=== PATIENT | male | born 1975 | race Two or more races ===

== ENCOUNTER 2019-04-18 11:07 | Inpatient (IN) | payer MEDICAID ==
[~2019-04-18] VITALS: Ht 175.3 cm; Wt 69.9 kg
[2019-04-18] VITALS (12 sets, daily range): BP systolic 96–136; BP diastolic 60–93
[2019-04-18] MEDS ORDERED: insulin (11:11)
--- NOTE | 2019-04-18 11:21 | NUR ---
ED Nurse Note: pt brought in to ER by ambulance from [facility] due to high blood sugar. per EMS pt has had this symptom for 3 days. pt aao x1-2 but following commands and behavior appropriate. anterior skin clean and intact and posterior skin will be checked after labs are collected. calm and cooperative but labored tachy breathing noted. vss as documented and tachyacardia notified to ERMD. blood sugar level shown critically high and ERMD made aware. pt is in gown and on environmental monitoring specialist.
[2019-04-18 11:48] LABS: HEMATOCRIT 53.3 % (42.0-52.0); HEMOGLOBIN 16.3 G/DL (14.2-18.0); MEAN CORPUSCULAR VOLUME 99 FL (80-99); PLATELET COUNT 209 K/UL (150-450); RED BLOOD COUNT 5.36 M/UL (4.70-6.10); RED CELL DISTRIBUTION WIDTH 14.9 % (11.6-14.8)
[2019-04-18 11:55] LABS: APPEARANCE,URINE CLEAR; BILIRUBIN, URINE NEGATIVE (NEGATIVE); COLOR,URINE PALE YELLOW; GLUCOSE, URINE (UA) 4+ (NEGATIVE); KETONES,URINE 4+ (NEGATIVE); LEUKOCYTE ESTERASE ,URINE NEGATIVE (NEGATIVE); NITRITE,URINE NEGATIVE (NEGATIVE); PH,URINE 5 (4.5-8.0); PROTEIN,URINE 2+ (NEGATIVE); UROBILINOGEN,URINE NORMAL MG/DL (0.0-1.0)
--- NOTE | 2019-04-18 12:00 | NUR ---
ED Nurse Note: posteior skin clean and intact. no pressure injury noted.
--- NOTE | 2019-04-18 12:03 | Emergency Room Report ---
History of Present Illness General Chief Complaint: Abnormal Labs Source: Patient, EMS Present Illness HPI 43-year-old male presents ED for evaluation. Brought in by EMS from [facility] facility. Noted to have elevated glucose. Nursing staff stated that Accu- Chek has been high for the last 4 days. History of diabetes. Patient history of craniotomy. Nonverbal at baseline. Leave verbal at baseline. No signs of distress upon arrival. Unable to provide any additional history at this time. No other aggravating relieving factors. No other associated symptoms Allergies: Coded Allergies: No Known Allergies (Unverified , 04/18/19) Patient History Past Medical History: DM Past Surgical History: none Pertinent Family History: none Social History: Denies: smoking, alcohol use, drug use Immunizations: UTD Reviewed Nursing Documentation: PMH: Agreed; PSxH: Agreed Nursing Documentation-PMH Past Medical History: No History, Except For Hx Diabetes: Yes Review of Systems All Other Systems: limited Physical Exam Vital Signs Date Time Temp Pulse Resp B/P (MAP) Pulse Ox O2 Delivery O2 Flow Rate FiO2 04/18/19 11:07 97.5 122 24 140/94 (109) 100 Room Air Sp02 EP Interpretation: reviewed, normal General Appearance: no apparent distress, alert, GCS 15, non-toxic Head: normocephalic Eyes: bilateral eye normal inspection, bilateral eye PERRL ENT: normal ENT inspection Neck: normal inspection Respiratory: chest non-tender, lungs clear, normal breath sounds, speaking full sentences Cardiovascular #1: regular rate, rhythm, no edema Gastrointestinal: normal inspection Rectal: deferred Genitourinary: no CVA tenderness Musculoskeletal: normal inspection Neurologic: other - nonverbal Psychiatric: other - nonverbal Skin: other - see nursing skin notes Lymphatic: normal inspection Procedures Critical Care Time Critical Care Time i. I feel this is a highly complex case requiring extensive working including EKG/Rhythm strip, Xray/CT/US, Blood/urine lab work, repeat exams while in ED, and administration of strong opiates/narcotics for pain control, admission to hospital or close patient follow up. Total time: 50 min bedside evaluation and treatment excludes procedures (EKG). Reason for critical care: DKA, sepsis Possible complications: hypotension, hypertension, IL, shock, arrhythmias, metabolic acidosis, end organ damage, respiratory failure. Interventions: labs, IVFS, EKG, CXR. bolus. broad spectrum antibiotics. ABG. insulin bolus and insulin drip. Course: Presenting with elevated Accu-Chek from boarding care. Minimally verbal. Glucose critically high. Labs show significant leukocytosis. Glucose greater than 500, bicarb low, anion gap high. ABG shows significant acidosis. Lactic greater than 3.8. Given 30 cc/kg fluid bolus. Given broad-spectrum antibiotics. Given bicarb. Insulin bolus and insulin drip started Consultations: nursing staff, EMS, family Performed by: Dr Bernabe Tolerated well condition = critical j. because of unstable vital signs this patient had a condition that could potentially threaten life or limb. I feel this is a critical patient who required my full attention while patient was considered critical. Total Critical Care Time excluding procedures was greater than 50 minutes Medical Decision Making Diagnostic Impression: Primary Impression: DKA (diabetic ketoacidoses) Qualified Codes: E13.10 - Other specified diabetes mellitus with ketoacidosis without coma Additional Impression: Sepsis Qualified Codes: A41.9 - Sepsis, unspecified organism ER Course Hospital Course 43-year-old male presenting to ED with altered mental status, glucometer critically high Differential diagnoses include: ETOH/drug ingestion, sepsis, DKA Clinical course Patient placed on stretcher. On hall monitor. After initial history and physical I ordered labs, IV fluids, EKG and chest Xray Labs-glucose greater than 500, anion gap elevated, bicarbonate 6, lactic 3.8. Leukocytosis noted. UA+ bacteria EKG - NSR, no acute ischemic changes interpreted by me Chest x-ray unremarkable 30cc/kg fluid bolus given. given bicarb. given broad spectrum antibiotics. insulin bolus/drip started. bicarb given Case discussed with Dr. Zamora and he agreed to accept the patient to his service for further care and support i. I feel this is a highly complex case requiring extensive working including EKG/Rhythm strip, Xray/CT/US, Blood/urine lab work, repeat exams while in ED, and administration of strong opiates/narcotics for pain control, admission to hospital or close patient follow up. j. because of unstable vital signs this patient had a condition that could potentially threaten life or limb. I feel this is a critical patient who required my full attention while patient was considered critical. Total Critical Care Time excluding procedures was greater than 50 minutes diagnosis - DKA, sepsis admitted to ICU in critical condition Labs Test 04/18/19 11:14 04/18/19 11:30 04/18/19 12:30 White Blood Count 20.0 K/UL (4.8-10.8) Red Blood Count 5.36 M/UL (4.70-6.10) Hemoglobin 16.3 G/DL (14.2-18.0) Hematocrit 53.3 % (42.0-52.0) Mean Corpuscular Volume 99 FL (80-99) Mean Corpuscular Hemoglobin 30.4 PG (27.0-31.0) Mean Corpuscular Hemoglobin Concent 30.6 G/DL (32.0-36.0) Red Cell Distribution Width 14.9 % (11.6-14.8) Platelet Count 209 K/UL (150-450) Mean Platelet Volume 6.1 FL (6.5-10.1) Neutrophils (%) (Auto) % (45.0-75.0) Lymphocytes (%) (Auto) % (20.0-45.0) Monocytes (%) (Auto) % (1.0-10.0) Eosinophils (%) (Auto) % (0.0-3.0) Basophils (%) (Auto) % (0.0-2.0) Differential Total Cells Counted 100 Neutrophils % (Manual) 97 % (45-75) Lymphocytes % (Manual) 2 % (20-45) Monocytes % (Manual) 1 % (1-10) Eosinophils % (Manual) 0 % (0-3) Basophils % (Manual) 0 % (0-2) Band Neutrophils 0 % (0-8) Platelet Estimate Adequate Platelet Morphology Normal Red Blood Cell Morphology Normal Sodium Level 137 MMOL/L (136-145) Potassium Level 4.5 MMOL/L (3.5-5.1) Chloride Level 101 MMOL/L (98-107) Carbon Dioxide Level 6 MMOL/L (21-32) Anion Gap 30 mmol/L (5-15) Blood Urea Nitrogen 16 mg/dL (7-18) Creatinine 1.9 MG/DL (0.55-1.30) Estimat Glomerular Filtration Rate 39.3 mL/min (>60) Glucose Level 539 MG/DL (74-106) Lactic Acid Level 3.80 mmol/L (0.4-2.0) Calcium Level 8.7 MG/DL (8.5-10.1) Magnesium Level 2.8 MG/DL (1.8-2.4) Total Bilirubin 0.6 MG/DL (0.2-1.0) Aspartate Amino Transf (AST/SGOT) 53 U/L (15-37) Alanine Aminotransferase (ALT/SGPT) 49 U/L (12-78) Alkaline Phosphatase 148 U/L (46-116) Pro-B-Type Natriuretic Peptide 729 pg/mL (0-125) Total Protein 8.4 G/DL (6.4-8.2) Albumin 4.2 G/DL (3.4-5.0) Globulin 4.2 g/dL Albumin/Globulin Ratio 1.0 (1.0-2.7) Acetone Level Positive-moderate (NEGATIVE) Urine Color Pale yellow Urine Appearance Clear Urine pH 5 (4.5-8.0) Urine Specific [place] 1.020 (1.005-1.035) Urine Protein 2+ (NEGATIVE) Urine Glucose (UA) 4+ (NEGATIVE) Urine Ketones 4+ (NEGATIVE) Urine Blood 4+ (NEGATIVE) Urine Nitrite Negative (NEGATIVE) Urine Bilirubin Negative (NEGATIVE) Urine Urobilinogen Normal MG/DL (0.0-1.0) Urine Leukocyte Esterase Negative (NEGATIVE) Urine RBC 2-4 /HPF (0 - 0) Urine WBC 0-2 /HPF (0 - 0) Urine Squamous Epithelial Cells Occasional /LPF Urine Amorphous Sediment Moderate /LPF (NONE) Urine Bacteria Occasional /HPF (NONE) Urine Fine Granular Casts 0-2 /LPF (NONE) Arterial Blood pH 7.088 (7.350-7.450) Arterial Blood Partial Pressure CO2 < 14.4 mmHg (35.0-45.0) Arterial Blood Partial Pressure O2 110.4 mmHg (75.0-100.0) Arterial Blood HCO3 mmol/L (22.0-26.0) Arterial Blood Oxygen Saturation 97.4 % (95-100) Arterial Blood Base Excess (-2-2) Jason Test Positive EKG Diagnostic Results Rate: tachycardiac Rhythm: NSR ST Segments: no acute changes ASA given to the pt in ED: No Rhythm Strip Diag. Results EP Interpretation: yes Rhythm: NSR, no PVC's, no ectopy Chest X-Ray Diagnostic Results Chest X-Ray Diagnostic Results : Chest X-Ray Ordered: Yes # of Views/Limited/Complete: 1 View Indication: Other EP Interpretation: Yes Interpretation: no consolidation, no effusion, no pneumothorax, no acute cardiopulmonary disease Impression: No acute disease Electronically Signed by: Electronically signed by Ashutosh Bernabe MD Last Vital Signs Date Time Temp Pulse Resp B/P (MAP) Pulse Ox O2 Delivery O2 Flow Rate FiO2 04/18/19 11:20 114 22 Room Air 04/18/19 11:19 97.1 136/93 100 Status: improved Disposition: ADMITTED INPATIENT Condition: Critical Referrals: NOT CHOSEN IPA/,REFERRING (PCP) Ashutosh Bernabe MD Apr 18, 2019 12:03
[2019-04-18 12:05] LABS: ALANINE AMINOTRANSFERASE 49 U/L (12-78); ALBUMIN 4.2 G/DL (3.4-5.0); ALKALINE PHOSPHATASE 148 U/L (46-116); ANION GAP 30 mmol/L (5-15); ASPARTATE AMINO TRANSFERASE 53 U/L (15-37); BILIRUBIN,TOTAL 0.6 MG/DL (0.2-1.0); BLOOD UREA NITROGEN 16 mg/dL (7-18); CALCIUM 8.7 MG/DL (8.5-10.1); CHLORIDE 101 MMOL/L (98-107); CREATININE 1.9 MG/DL (0.55-1.30); POTASSIUM 4.5 MMOL/L (3.5-5.1); SODIUM 137 MMOL/L (136-145)
--- NOTE | 2019-04-18 12:12 | NUR ---
ED Nurse Note: xray on bedside
[2019-04-18 12:16] LABS: CARBON DIOXIDE 6 MMOL/L (21-32)
[2019-04-18] MEDS ORDERED: Sodium Chloride 2,200 ML IVLG ONE (12:30)
[2019-04-18] MEDS ORDERED: Insulin Human Regular 100units/ml 3ml IV ONE (12:30)
[2019-04-18] MEDS ORDERED: Piperacillin/Tazobactam 3.375 GM in NS 110 ML IVPB ONE (12:30)
[2019-04-18] MEDS ORDERED: Sodium Bicarbonate 50ml Carp IV ONE (12:45)
--- NOTE | 2019-04-18 12:48 | NUR ---
ED Nurse Note: waiting for pharmacy to prepare insulin mix and bring it.
--- NOTE | 2019-04-18 13:20 | NUR ---
ED Nurse Note: accu check result 246 mg/dl has been reported to WILMAN.
[2019-04-18] MEDS ORDERED: D5 1/2NS 1,000 ML IV SCH (13:30)
--- NOTE | 2019-04-18 13:45 | Diagnostic Imaging Report ---
Indication: Dyspnea Comparison: None A single view chest radiograph was obtained. Findings: Cardiomediastinal appearance is within normal limits for age. The lungs are clear. Left hemidiaphragm is elevated. Pulmonary vascularity is appropriate. The diaphragmatic contour is smooth and costophrenic angles are sharp. No pleural effusions are identified. The bones are unremarkable. Impression: No acute findings
--- NOTE | 2019-04-18 13:57 | NUR ---
ED Nurse Note: report given to KIKI Dye.
--- NOTE | 2019-04-18 14:05 | NUR ---
ED Nurse Note: pt left unit with 2 RNs in stable condition.
--- NOTE | 2019-04-18 14:15 | NUR ---
NURSE NOTES: Received patient from Eric Montoya RN. Patient admitted for DKA with blood glucose >500 and altered mental status. Patient sitting up in bed with no sign of acute distress at this time. Patient points out that he has pain in his foot and left hand. the toe on his left foot is swollen and the nail is dark and thick. No apparent problems observed on the left hand. Will notify Dr Zamora and request podiatry consult for the swollen toe. Patient on room air with oxygen saturation 100%. patient temp 99.0, blood pressure 120/72, HR 102, RR 22. Patient has indention on the left side of his skull. Patient has contracture of the right hand. He is unable to open his hand. Patient able to squeeze with his left hand and is able to push and pull with bilateral feet with equal strength 5/5. Patient ambulatory in the [facility]. Patient has no history of medical records on file and is unable to provide information at this time. Patient follows commands and appears to understand what he is told but has trouble communicating presumably due to brain injury. Patient has left AC 20G PIV and right AC 20G PIV that are both patient and asymptomatic at this time. Patient has insulin drip running at 10 untis/hour at this time and D5 0.45% NS running at 100mL/hr. Blood sugar upon arrival to the floor is 209. Will continue to monitor. Patient skin intact at this time. Bed in low position with bed alarm on. Urinal at the bedside. Heels elevated.
--- NOTE | 2019-04-18 15:00 | NUR ---
NURSE NOTES: Dr. Zamora notified of patient's admission to ICU- updated with patient's condition - made aware of latest BS 209- with order to call Dr. Zamora for consult and that he will call back to give more admitting orders
--- NOTE | 2019-04-18 15:00 | NUR ---
NURSE NOTES: Patient's caser from the [facility] came to see the patient. She gave us the number for the patient's sister and the name and number of the facility. Patient is from [facility] on [address] [place] [address]. Will ask MD is he wants to request medical records. The facility was called and the director of the facility stated that he does not have access to the medical records at this time but the patient was previously hospitalized at [facility]. Will follow up with [facility] if the MD requests medical records.
--- NOTE | 2019-04-18 15:05 | NUR ---
NURSE NOTES: Left message at Dr. Zamora's voice mail regarding the consult
[2019-04-18] MEDS ORDERED: Insulin Human Regular 100units/ml 3ml IV PRN ×2 (15:45)
--- NOTE | 2019-04-18 15:56 | NUR ---
NURSE NOTES: Received call back and orders from Dr Arrington. Orders are as follows: Insulin Drip algorithm 3, CBC, CMP, Mg, Phos, and A1C labs for the morning, and IV fluid D5 0.45% NS at 100mL/hr. Orders read back and verified. Orders placed at this time. Will follow up with pharmacy regarding insulin drip.
--- NOTE | 2019-04-18 16:00 | NUR ---
NURSE NOTES: Blood pressure 105/67, HR 108 and showing sinus tachycardia on the library monitor, SpO2 100% on room air, temp 98.5, and RR 22. Patient showing no sign of acute distress. Blood glucose finger stick 177 at this time. Insulin drip running at 5units/hr per protocol. Patient's right wrist 20G PIV and left antecubital 20G PIV are both patent and asymptomatic. Patient has D5 0.45% NS running at 100mL/hr. Patient still has not voided. Urinal at the bedside. Awaiting call back and admission orders from Dr Zamora. Addendum: 04/18/19 at 1800 by Anne Salomon RN Big toe on right foot remains swollen. Patient able to move right arm but right hand remains weak and clenched.
[2019-04-18] MEDS: D5 1/2NS 1,000 ML IV SCH ×2 (16:17→23:44)
--- NOTE | 2019-04-18 17:00 | NUR ---
NURSE NOTES: Dr Zamora called back with admission orders. Orders read back and verified via telephone order/read back. Orders placed at this time.
[2019-04-18] MEDS: Zoysn 3.37gm in NS 100ML IVPB SCH (18:14)
--- NOTE | 2019-04-18 19:00 | NUR ---
HAND-OFF: Report given to KIKI Cardona. Vital signs stable. No sign of acute distress. Patient on insulin drip at 3units/hr. Endorsed to continue to monitor blood sugar and follow up. Addendum: 04/18/19 at 1947 by Anne Salomon RN Report given at 1939.
--- NOTE | 2019-04-18 19:20 | NUR ---
NURSE NOTES: Received pt and report from KIKI Rodríguez. Pt's resting in bed, watching TV, verbally responsive, however mentally impaired, post craniotomy 2016. VS stable, in no acute distress. SR on school nurse. O2 sat 100% on RA. Noted right wrist and left AC both 20G running D5 1/2 NS at 100ml/hr and Insulin drip at 3 units/hr. Pt's currently on Algorithm 3. HOB kept elevated, bed in low and locked position, call light within reach. Will continue to monitor.
[2019-04-18] MEDS: Insulin Rate Change 1 Each MISC PRN ×2 (20:14→21:13)
--- NOTE | 2019-04-18 22:00 | NUR ---
NURSE NOTES: Pt's resting in bed, in no acute distress. VS stable. Will continue to monitor.
[2019-04-19] VITALS (24 sets, daily range): BP systolic 87–108; BP diastolic 55–78
--- NOTE | 2019-04-19 | NUR ---
NURSE NOTES: Pt's resting in bed, in no acute distress. VS stable. Will continue to monitor.
[2019-04-19] MEDS: Zoysn 3.37gm in NS 100ML IVPB SCH ×3 (02:00→18:22)
--- NOTE | 2019-04-19 02:00 | NUR ---
NURSE NOTES: Pt's resting in bed, asleep, in no acute distress. VS stable. Will continue to monitor.
--- NOTE | 2019-04-19 04:10 | NUR ---
NURSE NOTES: Pt's resting in bed, asleep, in no acute distress. VS stable. Will continue to monitor.
--- NOTE | 2019-04-19 05:22 | General Progress Note ---
Assessment/Plan Problem List: (1) Skull defect ICD Codes: M95.2 - Other acquired deformity of head SNOMED: 452302158, 658259985 (2) DKA (diabetic ketoacidoses) ICD Codes: E11.10 - Type 2 diabetes mellitus with ketoacidosis without coma SNOMED: 545908710, 84158545 Qualifiers: Qualified Codes: E13.10 - Other specified diabetes mellitus with ketoacidosis without coma (3) Sepsis ICD Codes: A41.9 - Sepsis, unspecified organism SNOMED: 49465439, 38334387 Qualifiers: Qualified Codes: A41.9 - Sepsis, unspecified organism Assessment/Plan: continue insulin gtt and IVF as is for now will follow am labs and lytes will convert insulin gtt to sub Q regimen once AG is closed discussed with RN at bedside Subjective ROS Limited/Unobtainable: Yes Allergies: Coded Allergies: No Known Allergies (Unverified , 04/18/19) Subjective presented from [facility] and care with elevated glucose and AMS found to be in DKA started on insulin gtt and transferred to ICU I spoke with agricultural purchasing agent yesterday and established insulin gtt protocol glucose values are well controlled on insulin gtt and D50 half saline diet is regular diabetic - he vomited last night am labs are pending - chalk machine operator is at bedside now to draw Objective Last 24 Hour Vital Signs Date Time Temp Pulse Resp B/P (MAP) Pulse Ox O2 Delivery O2 Flow Rate FiO2 04/19/19 03:00 87 14 98/63 (75) 98 04/19/19 02:00 88 18 101/62 (75) 97 04/19/19 01:00 86 15 98/60 (73) 99 04/19/19 00:00 88 16 96/67 (77) 100 04/19/19 00:00 88 04/19/19 00:00 Room Air 04/18/19 23:00 92 16 101/60 (74) 100 04/18/19 22:00 93 30 105/68 (80) 100 04/18/19 21:00 97 24 96/62 (73) 100 04/18/19 20:00 Room Air 04/18/19 20:00 90 04/18/19 20:00 98.8 98 19 110/65 (80) 100 04/18/19 19:00 101 19 101/65 (77) 100 04/18/19 18:00 101 17 102/65 (77) 99 04/18/19 17:00 108 19 105/67 (80) 100 04/18/19 16:00 104 04/18/19 16:00 98.5 105 20 104/70 (81) 100 04/18/19 16:00 Room Air 04/18/19 15:41 Room Air 04/18/19 15:00 98 16 121/82 (95) 100 04/18/19 14:36 97 04/18/19 14:09 99.0 103 16 120/72 (88) 100 04/18/19 14:05 98.0 98 19 120/85 100 Room Air 04/18/19 12:59 97.4 108 19 127/89 100 Room Air 04/18/19 11:20 114 22 Room Air 04/18/19 11:19 97.1 114 22 136/93 100 Room Air 04/18/19 11:07 97.5 122 24 140/94 (109) 100 Room Air Intake and Output 04/18/19 04/19/19 19:00 07:00 Intake Total 4130.0 ml 1129.0 ml Output Total 300 ml 800 ml Balance 3830.0 ml 329.0 ml Intake Oral 500 ml 200 ml IV Total 3630.0 ml 929.0 ml Output Urine Total 800 ml Emesis 300 ml # Voids 1 1 Laboratory Tests 04/18/19 11:14: White Blood Count 20.0H, Red Blood Count 5.36, Hemoglobin 16.3, Hematocrit 53.3H , Mean Corpuscular Volume 99, Mean Corpuscular Hemoglobin 30.4, Mean Corpuscular Hemoglobin Concent 30.6L, Red Cell Distribution Width 14.9H, Platelet Count 209, Mean Platelet Volume 6.1L, Neutrophils (%) (Auto) , Lymphocytes (%) (Auto) , Monocytes (%) (Auto) , Eosinophils (%) (Auto) , Basophils (%) (Auto) , Differential Total Cells Counted 100, Neutrophils % ( Manual) 97H, Lymphocytes % (Manual) 2L, Monocytes % (Manual) 1, Eosinophils % ( Manual) 0, Basophils % (Manual) 0, Band Neutrophils 0, Platelet Estimate Adequate, Platelet Morphology Normal, Red Blood Cell Morphology Normal, Sodium Level 137, Potassium Level 4.5, Chloride Level 101, Carbon Dioxide Level 6*L, Anion Gap 30H, Blood Urea Nitrogen 16, Creatinine 1.9H, Estimat Glomerular Filtration Rate 39.3, Glucose Level 539*H, Lactic Acid Level 3.80H, Calcium Level 8.7, Magnesium Level 2.8H, Total Bilirubin 0.6, Aspartate Amino Transf ( AST/SGOT) 53H, Alanine Aminotransferase (ALT/SGPT) 49, Alkaline Phosphatase 148H , Pro-B-Type Natriuretic Peptide 729H, Total Protein 8.4H, Albumin 4.2, Globulin 4.2, Albumin/Globulin Ratio 1.0, Acetone Level Positive-moderate 04/18/19 11:30: Urine Color Pale yellow, Urine Appearance Clear, Urine pH 5, Urine Specific [place] 1.020, Urine Protein 2+H, Urine Glucose (UA) 4+H, Urine Ketones 4+H, Urine Blood 4+H, Urine Nitrite Negative, Urine Bilirubin Negative, Urine Urobilinogen Normal, Urine Leukocyte Esterase Negative, Urine RBC 2-4H, Urine WBC 0-2, Urine Squamous Epithelial Cells Occasional, Urine Amorphous Sediment ModerateH, Urine Bacteria Occasional, Urine Fine Granular Casts 0-2H 04/18/19 12:30: Arterial Blood pH 7.088*L, Arterial Blood Partial Pressure CO2 < 14.4*L, Arterial Blood Partial Pressure O2 110.4H, Arterial Blood HCO3 , Arterial Blood Oxygen Saturation 97.4, Arterial Blood Base Excess , Jason Test Positive 04/18/19 13:50: Lactic Acid Level 3.90H 04/18/19 20:00: Lactic Acid Level 1.60 Height (Feet): 5 Height (Inches): 9.00 Weight (Pounds): 160 General Appearance: lethargic EENT: other - skull defect Neck: normal alignment Cardiovascular: normal rate Respiratory/Chest: lungs clear Abdomen: normal bowel sounds Edema: no edema noted Arm (L), no edema noted Arm (R), no edema noted Leg (L), no edema noted Leg (R), no edema noted Pedal (L), no edema noted Pedal (R), no edema noted Generalized Objective Current Medications Medications (Trade) Dose Ordered Sig/Awa Route PRN Reason Start Time Stop Time Status Last Admin Dose Admin Acetaminophen (Tylenol) 650 mg Q6H PRN ORAL Fever 04/18/19 16:45 05/18/19 16:44 Acetaminophen (Tylenol) 650 mg Q6H PRN ORAL Mild Pain (Pain Scale 1-3) 04/18/19 16:45 05/18/19 16:44 Dextrose (Dextrose 50%) 25 ml Q30M PRN IV HYPOGLYCEMIA 04/18/19 15:45 05/18/19 15:44 Dextrose (Dextrose 50%) 25 ml Q30M PRN IV Hypoglycemia 04/18/19 16:45 05/18/19 16:44 Dextrose (Dextrose 50%) 50 ml Q30M PRN IV HYPOGLYCEMIA 04/18/19 15:45 05/18/19 15:44 Dextrose (Dextrose 50%) 50 ml Q30M PRN IV Hypoglycemia 04/18/19 16:45 05/18/19 16:44 Dextrose/Sodium Chloride 1,000 ml @ 100 mls/hr Q10H IV 04/18/19 15:45 05/18/19 15:44 04/18/19 23:44 Insulin Human Regular (NovoLIN R) 5 units PRN PRN IV BS 200-299 04/18/19 15:45 05/18/19 15:44 Insulin Human Regular (NovoLIN R) 10 units PRN PRN IV BS=>300 04/18/19 15:45 05/18/19 15:44 Insulin Human Regular 100 units/ Sodium Chloride 100 ml @ 0 mls/hr Q24H IV 04/18/19 16:30 05/18/19 15:59 04/18/19 16:34 Miscellaneous Medication (Insulin Rate Change) 1 ea PRN PRN MISC DKA 04/18/19 15:45 05/18/19 15:44 04/18/19 21:13 Pantoprazole (Protonix) 40 mg DAILY IV 04/19/19 09:00 05/19/19 08:59 Piperacillin Sod/ Tazobactam Sod 3.375 gm/Sodium Chloride 110 ml @ 27.5 mls/hr Q8H IVPB 04/18/19 18:00 04/25/19 17:59 04/19/19 02:00 Octavio Arrington MD Apr 19, 2019 05:22
[2019-04-19 05:48] LABS: BASOPHILS % (AUTO) 0.7 % (0.0-2.0); EOSINOPHILS % (AUTO) 0.7 % (0.0-3.0); HEMATOCRIT 36.3 % (42.0-52.0); HEMOGLOBIN 12.3 G/DL (14.2-18.0); MEAN CORPUSCULAR VOLUME 91 FL (80-99); MONOCYTES % (AUTO) 7.5 % (1.0-10.0); PLATELET COUNT 140 K/UL (150-450); RED BLOOD COUNT 4.01 M/UL (4.70-6.10); RED CELL DISTRIBUTION WIDTH 13.7 % (11.6-14.8); WHITE BLOOD COUNT 6.8 K/UL (4.8-10.8)
--- NOTE | 2019-04-19 06:00 | NUR ---
NURSE NOTES: Pt's resting in bed, in no acute distress. VS stable. Will continue to monitor.
--- NOTE | 2019-04-19 07:09 | NUR ---
HAND-OFF: Report given to KIKI Piña.
--- NOTE | 2019-04-19 07:27 | NUR ---
NURSE NOTES: Report received from Brendan RN. Pt alert and oriented x 2-3, able to make needs known. Pt forgetful at times. Pt denies pain or discomfort at this time. Pt on threat monitoring analyst, SR. Pt on RA saturating 100%, denies SOB. Urinal at bedside. RW 20G and LW 20G noted and intact with insulin running at 2 u/hr and D5 1/2NS @ 100 cc/hr. Safety measures in place with bed locked and in lowest position, side rails x3 up and bed alarm on. Will continue to monitor and continue plan of care.
[2019-04-19 08:03] LABS: ALANINE AMINOTRANSFERASE 33 U/L (12-78); ALBUMIN 2.7 G/DL (3.4-5.0); ALBUMIN/GLOBULIN RATIO 0.8 (1.0-2.7); ALKALINE PHOSPHATASE 85 U/L (46-116); ANION GAP 9 mmol/L (5-15); ASPARTATE AMINO TRANSFERASE 33 U/L (15-37); BILIRUBIN,TOTAL 0.5 MG/DL (0.2-1.0); BLOOD UREA NITROGEN 6 mg/dL (7-18); CALCIUM 8.3 MG/DL (8.5-10.1); CARBON DIOXIDE 22 MMOL/L (21-32); CHLORIDE 108 MMOL/L (98-107); CREATININE 1.1 MG/DL (0.55-1.30); PHOSPHORUS 1.3 MG/DL (2.5-4.9); SODIUM 139 MMOL/L (136-145)
[2019-04-19 08:06] LABS: POTASSIUM 2.6 MMOL/L (3.5-5.1)
[2019-04-19] MEDS: Pantoprazole Inj IV SCH (08:36)
--- NOTE | 2019-04-19 08:50 | NUR ---
NURSE NOTES: Spoke with Dr Zamora regarding K level 2.6. ordered KCL 40 meq oral x1 now. Will continue to monitor.
[2019-04-19] MEDS: D5 1/2NS 1,000 ML IV SCH (09:53)
--- NOTE | 2019-04-19 10:05 | NUR ---
NURSE NOTES: Dr. Zamora saw patient. Diet order changed to 1800 ADA. Will continue to monitor.
--- NOTE | 2019-04-19 12:22 | NUR ---
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
--- NOTE | 2019-04-19 12:30 | NUR ---
NURSE NOTES: Patient tolerated soft lunch, ate independently. VSS.
--- NOTE | 2019-04-19 15:00 | NUR ---
NURSE NOTES: F/S 105. Insulin drip decreased to 1 unit/hr. Patient appears to be resting comfortably. Denies pain. Able to report all needs. Bed in lowest position and call light in place. Will continue to monitor.
[2019-04-19] MEDS ORDERED: D5 1/2NS 1000ml IV ONE (15:32)
[2019-04-19] MEDS ORDERED: NS 275ml ONE (15:32)
[2019-04-19] MEDS ORDERED: Tubing IV Secondary IV ONE (15:32)
--- NOTE | 2019-04-19 17:30 | NUR ---
NURSE NOTES: Patient observed eating dinner independently. VSS.
[2019-04-19] MEDS: Levemir Flexpen SUBQ SCH (18:40)
--- NOTE | 2019-04-19 19:00 | History and Physical Report ---
DATE OF ADMISSION: 04/18/2019 HISTORY OF PRESENT ILLNESS: This is a 43-year-old male, who is a very poor historian. He was brought in by paramedics from his board and care facility with hyperglycemia. The nursing staff at the facility provided information that his Accu-Chek has been high for the last 4 days. The patient is a known diabetic, but he is unable to provide information regarding as to what he takes. He has a previous history of craniotomy and apparently, he is nonverbal at baseline with right hemiparesis and right upper extremity contractures. Apparently, the patient was at an outside hospital in the recent past, but no records available. These have been requested. PAST MEDICAL HISTORY: Diabetes mellitus. PREVIOUS SURGERIES: Left craniotomy. HOME MEDICATIONS: Not known. REVIEW OF SYSTEMS: Not obtainable. PHYSICAL EXAMINATION: GENERAL: Reveals a 43-year-old male. HEENT: Remarkable for evidence of previous hemicraniotomy with large defect in the left cranium. He has right hemifacial droop. NEUROLOGIC: He has right upper extremity contractures and weakness. Right lower extremity is also weak but 4/5. Left is normal. CHEST: Clear breath sounds bilaterally. ABDOMEN: Soft. EXTREMITIES: There is no edema. LABORATORY DATA: Lab testing overnight shows hemoglobin 12.3, white count is normal, and platelet count is 140,000. ABG obtained yesterday pH 7.08, pCO2 14, pO2 110. Chemistries this morning show a creatinine of 1.1. Anion gap is 9. Potassium 2.6. Glucose is 126. Hemoglobin A1c 7.8. Albumin 2.7. Toxicology is negative. Urinalysis is negative. X-ray of the chest is noncontributory. IMPRESSION: 1. Previous craniotomy. 2. Diabetes mellitus. 3. BKA. 4. Right hemiparesis. DISCUSSION: 1. Admit to the hospital. 2. Insulin drip. 3. IV fluids. 4. . 5. Replace potassium. 6. DVT prophylaxis. 7. Endocrine consultation. 8. We will obtain old records. 9. We will follow carefully. 10. Empiric antibiotics. Rik Zamora M.D. DR: AGNIESZKA JOB#: [id number] CC:
--- NOTE | 2019-04-19 19:24 | NUR ---
HAND-OFF: Report given to KIKI Snow.
--- NOTE | 2019-04-19 19:30 | NUR ---
NURSE NOTES: Received pt in no acute distress, awake, alert, oriented x2, follow commands but forgetful, requires verbal cues. Denies pain, denies SOB. Currently on Room air saturating 96-100%. S/P left craniotomy, left temporal lobe depressed but hard. Right sided weakness. PIV site on right wrist area intact as well. IVF of NS with 20meqKCL started at 100ml/h. Voiding via urinal. Afebrile, NSR, BP stable. Skin dry and intact. Will monitor for s/s hypo/hyperglycemia.
[2019-04-19] MEDS: NS w/KCl 20mEq 1000ml 1,000 ML IV SCH (20:09)
[2019-04-19] MEDS: NovoLOG Insulin Flexpen SUBQ SCH (21:20)
--- NOTE | 2019-04-19 21:30 | NUR ---
NURSE NOTES: Noted that PIV site on LAC accidentally pulled out as pt was slightly restless. Wants to use the BR. Assisted to BSC had 1 large formed BM. HS care done. Accucheck 273, covered per sliding scale.
[2019-04-20] VITALS (24 sets, daily range): BP systolic 80–113; BP diastolic 53–78
--- NOTE | 2019-04-20 | NUR ---
NURSE NOTES: Sleeping, no distress, VSS
[2019-04-20] MEDS: Zoysn 3.37gm in NS 100ML IVPB SCH ×3 (01:55→17:13)
--- NOTE | 2019-04-20 02:00 | NUR ---
NURSE NOTES: Sleeping, no distress. Right wrist IV patent. No hypoglycemic rxn noted.
--- NOTE | 2019-04-20 04:00 | NUR ---
NURSE NOTES: Awake, afebrile, BP stable. Denies pain. AM care rendered. Voided via urinal. Pt has expressive aphasia. Gave something to write on. Able to write that he needed coffee
[2019-04-20 05:21] LABS: BASOPHILS % (AUTO) 0.9 % (0.0-2.0); EOSINOPHILS % (AUTO) 1.2 % (0.0-3.0); HEMATOCRIT 36.2 % (42.0-52.0); HEMOGLOBIN 12.1 G/DL (14.2-18.0); LYMPHOCYTES % (AUTO) 30.1 % (20.0-45.0); MEAN CORPUSCULAR VOLUME 91 FL (80-99); MONOCYTES % (AUTO) 9.5 % (1.0-10.0); NEUTROPHILS % (AUTO) 58.3 % (45.0-75.0); PLATELET COUNT 120 K/UL (150-450); RED BLOOD COUNT 3.96 M/UL (4.70-6.10); RED CELL DISTRIBUTION WIDTH 14.3 % (11.6-14.8); WHITE BLOOD COUNT 4.6 K/UL (4.8-10.8)
[2019-04-20 05:31] LABS: ANION GAP 6 mmol/L (5-15); BLOOD UREA NITROGEN 7 mg/dL (7-18); CALCIUM 8.3 MG/DL (8.5-10.1); CARBON DIOXIDE 24 MMOL/L (21-32); CHLORIDE 111 MMOL/L (98-107); CREATININE 0.8 MG/DL (0.55-1.30); POTASSIUM 3.2 MMOL/L (3.5-5.1); SODIUM 141 MMOL/L (136-145)
[2019-04-20] MEDS: NS w/KCl 20mEq 1000ml 1,000 ML IV SCH ×2 (06:17→14:51)
[2019-04-20] MEDS: NovoLOG Insulin Flexpen SUBQ SCH ×7 (06:29→20:47)
[2019-04-20] MEDS ORDERED: Insulin Human Regular 100units/ml 3ml SUBQ ONE (06:30)
--- NOTE | 2019-04-20 06:37 | General Progress Note ---
Assessment/Plan Problem List: (1) Skull defect ICD Codes: M95.2 - Other acquired deformity of head SNOMED: 075481135, 835913016 (2) DKA (diabetic ketoacidoses) ICD Codes: E11.10 - Type 2 diabetes mellitus with ketoacidosis without coma SNOMED: 645648842, 99163809 Qualifiers: Qualified Codes: E13.10 - Other specified diabetes mellitus with ketoacidosis without coma (3) Sepsis ICD Codes: A41.9 - Sepsis, unspecified organism SNOMED: 17588297, 07503016 Qualifiers: Qualified Codes: A41.9 - Sepsis, unspecified organism Assessment/Plan: continue Levemir 14 units bid continue Novolog 6 units ac tid continue NISS ac / hs Subjective ROS Limited/Unobtainable: Yes Allergies: Coded Allergies: No Known Allergies (Unverified , 04/18/19) Subjective events noted I stopped insulin gtt yesterday evening after AG was closed and initiated Levemir and Novolog regimen fasting glucose today is 110 mg/dL Item Value Date Time Bedside Blood Glucose 110 mg/dl 04/20/19 0629 Bedside Blood Glucose 273 mg/dl H 04/19/19 2120 Bedside Blood Glucose 247 mg/dl H 04/19/19 1840 Bedside Blood Glucose 127 mg/dl H 04/19/19 1344 Bedside Blood Glucose 117 mg/dl 04/19/19 0700 Bedside Blood Glucose 119 mg/dl 04/19/19 0500 Bedside Blood Glucose 110 mg/dl 04/19/19 0100 Objective Last 24 Hour Vital Signs Date Time Temp Pulse Resp B/P (MAP) Pulse Ox O2 Delivery O2 Flow Rate FiO2 04/20/19 06:00 73 14 108/78 (88) 97 04/20/19 05:00 78 16 103/73 (83) 98 04/20/19 04:00 97.8 71 13 96/66 (76) 99 04/20/19 04:00 86 04/20/19 04:00 Room Air 04/20/19 03:00 71 14 94/63 (73) 98 04/20/19 02:00 72 12 99/65 (76) 99 04/20/19 01:00 87 19 80/58 (65) 98 04/20/19 00:00 Room Air 04/20/19 00:00 88 04/20/19 00:00 98.0 81 15 88/58 (68) 96 04/19/19 23:00 84 18 87/55 (66) 98 04/19/19 22:00 81 13 107/75 (86) 100 04/19/19 21:00 78 15 105/78 (87) 99 04/19/19 20:00 97.9 75 16 105/70 (82) 100 04/19/19 20:00 Room Air 04/19/19 20:00 80 04/19/19 19:00 83 15 98/64 (75) 99 04/19/19 18:00 93 16 106/73 (84) 100 04/19/19 17:00 76 15 100/63 (75) 99 04/19/19 16:00 88 04/19/19 16:00 97.8 84 12 89/61 (70) 100 04/19/19 16:00 Room Air 04/19/19 15:00 83 14 90/62 (71) 99 04/19/19 14:00 94 15 93/60 (71) 99 04/19/19 13:00 87 15 102/76 (85) 100 04/19/19 12:00 98.0 82 14 94/65 (75) 100 04/19/19 12:00 Room Air 04/19/19 12:00 85 04/19/19 11:00 83 13 98/71 (80) 100 04/19/19 10:00 86 13 108/73 (85) 100 04/19/19 09:00 87 16 98/72 (81) 94 04/19/19 08:00 98.2 79 16 101/74 (83) 99 04/19/19 08:00 Room Air 04/19/19 08:00 75 04/19/19 07:00 81 17 95/63 (74) 100 Intake and Output 04/19/19 04/20/19 19:00 07:00 Intake Total 2480.0 ml 1580.0 ml Output Total 850 ml 1000 ml Balance 1630.0 ml 580.0 ml Intake Oral 1350 ml 360 ml IV Total 1130.0 ml 1220.0 ml Output Urine Total 850 ml 1000 ml # Bowel Movements 1 Laboratory Tests 04/19/19 07:32: Sodium Level 139, Potassium Level 2.6*L, Chloride Level 108H, Carbon Dioxide Level 22, Anion Gap 9, Blood Urea Nitrogen 6L, Creatinine 1.1, Estimat Glomerular Filtration Rate > 60, Glucose Level 126#H, Calcium Level 8.3L, Phosphorus Level 1.3L, Magnesium Level 1.9, Total Bilirubin 0.5, Aspartate Amino Transf (AST/SGOT) 33, Alanine Aminotransferase (ALT/SGPT) 33, Alkaline Phosphatase 85, Total Protein 5.9L, Albumin 2.7L, Globulin 3.2, Albumin/ Globulin Ratio 0.8L 04/20/19 04:20: Sodium Level 141, Potassium Level 3.2L, Chloride Level 111H, Carbon Dioxide Level 24, Anion Gap 6, Blood Urea Nitrogen 7, Creatinine 0.8, Estimat Glomerular Filtration Rate > 60, Glucose Level 119H, Calcium Level 8.3L, White Blood Count 4.6L, Red Blood Count 3.96L, Hemoglobin 12.1L, Hematocrit 36.2L, Mean Corpuscular Volume 91, Mean Corpuscular Hemoglobin 30.7, Mean Corpuscular Hemoglobin Concent 33.5, Red Cell Distribution Width 14.3, Platelet Count 120L, Mean Platelet Volume 6.6, Neutrophils (%) (Auto) 58.3, Lymphocytes (%) (Auto) 30.1, Monocytes (%) (Auto) 9.5, Eosinophils (%) (Auto) 1.2, Basophils (%) (Auto ) 0.9 Height (Feet): 5 Height (Inches): 9.00 Weight (Pounds): 155 General Appearance: no apparent distress EENT: other - skull defect Neck: normal alignment Cardiovascular: normal rate Respiratory/Chest: lungs clear Abdomen: normal bowel sounds Pelvis: normal external exam Objective Current Medications Medications (Trade) Dose Ordered Sig/Awa Route PRN Reason Start Time Stop Time Status Last Admin Dose Admin Acetaminophen (Tylenol) 650 mg Q6H PRN ORAL Fever 04/18/19 16:45 05/18/19 16:44 Acetaminophen (Tylenol) 650 mg Q6H PRN ORAL Mild Pain (Pain Scale 1-3) 04/18/19 16:45 05/18/19 16:44 Dextrose (Dextrose 50%) 25 ml Q30M PRN IV Hypoglycemia 04/19/19 18:30 05/19/19 18:29 Dextrose (Dextrose 50%) 50 ml Q30M PRN IV Hypoglycemia 04/19/19 18:30 05/19/19 18:29 Insulin Aspart (NovoLOG) BEFORE MEALS AND HS SUBQ 04/19/19 21:00 05/19/19 20:59 04/19/19 21:20 Insulin Aspart (NovoLOG) 6 units BEFORE MEALS SUBQ 04/20/19 06:30 05/20/19 06:29 Insulin Detemir (Levemir) 14 units BID SUBQ 04/19/19 19:00 05/19/19 18:59 04/19/19 18:40 Pantoprazole (Protonix) 40 mg DAILY IV 04/19/19 09:00 05/19/19 08:59 04/19/19 08:36 Piperacillin Sod/ Tazobactam Sod 3.375 gm/Sodium Chloride 110 ml @ 27.5 mls/hr Q8H IVPB 04/18/19 18:00 04/25/19 17:59 04/20/19 01:55 Potassium Chloride/Sodium Chloride 1,000 ml @ 100 mls/hr Q10H IV 04/19/19 19:30 05/19/19 19:29 04/20/19 06:17 Octavio Arrington MD Apr 20, 2019 06:37
--- NOTE | 2019-04-20 07:16 | NUR ---
HAND-OFF: Report given to Kinjal Bañuelos RN.
--- NOTE | 2019-04-20 07:30 | NUR ---
NURSE NOTES: Received the patient from KIKI Rodrigues. Patient is awake, alert and oriented x2, able to follow commands. SR noted on the monitor. Patient on room air, O2 sat 98%. No acute distress noted. No s/sx of hypo/hyperglycemia. Patient noted with right side weakness. right wrist 20G intact, asymptomatic, running D5NS with 20meq at 100ml/hr. VSS. Bed in lowest position, locked, side rails upx2. Bed alarm on. Call light within reach. Will continue to monitor.
[2019-04-20] MEDS: Pantoprazole Inj IV SCH (08:49)
[2019-04-20] MEDS: Levemir Flexpen SUBQ SCH ×2 (08:52→17:13)
--- NOTE | 2019-04-20 09:05 | Pulmonology Progress Note ---
Assessment/Plan Assessment/Plan IMPRESSION: 1. Previous craniotomy. 2. Diabetes mellitus. 3. BKA. 4. Right hemiparesis. DISCUSSION: 1. Admit to the hospital. 2. Insulin drip now dc 3. IV fluids. 4. Continue basal insulin and SS 5. Replace potassium. 6. DVT prophylaxis. 7. Endocrine consultation noted. 8. I will obtain old records. 9. I will follow carefully. 10. Empiric antibiotics. Rik Zamora M.D. Subjective Interval Events: Seen by endocrine; now off IV insulin Constitutional: Reports: no symptoms HEENT: Repors: no symptoms Respiratory: Reports: no symptoms Cardiovascular: Reports: no symptoms Gastrointestinal/Abdominal: Reports: no symptoms Allergies: Coded Allergies: No Known Allergies (Unverified , 04/18/19) Objective Last 24 Hour Vital Signs Date Time Temp Pulse Resp B/P (MAP) Pulse Ox O2 Delivery O2 Flow Rate FiO2 04/20/19 08:00 Room Air 04/20/19 08:00 98.0 90 14 112/69 (83) 98 04/20/19 07:00 68 14 103/69 (80) 97 04/20/19 06:00 73 14 108/78 (88) 97 04/20/19 05:00 78 16 103/73 (83) 98 04/20/19 04:00 97.8 71 13 96/66 (76) 99 04/20/19 04:00 86 04/20/19 04:00 Room Air 04/20/19 03:00 71 14 94/63 (73) 98 04/20/19 02:00 72 12 99/65 (76) 99 04/20/19 01:00 87 19 80/58 (65) 98 04/20/19 00:00 Room Air 04/20/19 00:00 88 04/20/19 00:00 98.0 81 15 88/58 (68) 96 04/19/19 23:00 84 18 87/55 (66) 98 04/19/19 22:00 81 13 107/75 (86) 100 04/19/19 21:00 78 15 105/78 (87) 99 04/19/19 20:00 97.9 75 16 105/70 (82) 100 04/19/19 20:00 Room Air 04/19/19 20:00 80 04/19/19 19:00 83 15 98/64 (75) 99 04/19/19 18:00 93 16 106/73 (84) 100 04/19/19 17:00 76 15 100/63 (75) 99 04/19/19 16:00 88 04/19/19 16:00 97.8 84 12 89/61 (70) 100 04/19/19 16:00 Room Air 04/19/19 15:00 83 14 90/62 (71) 99 04/19/19 14:00 94 15 93/60 (71) 99 04/19/19 13:00 87 15 102/76 (85) 100 04/19/19 12:00 98.0 82 14 94/65 (75) 100 04/19/19 12:00 Room Air 04/19/19 12:00 85 04/19/19 11:00 83 13 98/71 (80) 100 04/19/19 10:00 86 13 108/73 (85) 100 Intake and Output 04/19/19 04/20/19 19:00 07:00 Intake Total 2480.0 ml 1651.67 ml Output Total 850 ml 1000 ml Balance 1630.0 ml 651.67 ml Intake Oral 1350 ml 360 ml IV Total 1130.0 ml 1291.67 ml Output Urine Total 850 ml 1000 ml # Bowel Movements 1 General Appearance: no acute distress HEENT: normocephalic, other Respiratory/Chest: chest wall non-tender, lungs clear Cardiovascular: normal peripheral pulses, normal rate Microbiology Date/Time Source Procedure Growth Status 04/18/19 11:30 Blood Blood Culture - Preliminary NO GROWTH AFTER 24 HOURS Resulted 04/18/19 11:15 Blood Blood Culture - Preliminary NO GROWTH AFTER 24 HOURS Resulted 04/18/19 11:30 Rectum VRE Culture - Final NO VANCOMYCIN RESISTANT ENTEROCOCCUS ... Complete Laboratory Tests 04/20/19 04:20: White Blood Count 4.6L, Red Blood Count 3.96L, Hemoglobin 12.1L, Hematocrit 36.2L, Mean Corpuscular Volume 91, Mean Corpuscular Hemoglobin 30.7, Mean Corpuscular Hemoglobin Concent 33.5, Red Cell Distribution Width 14.3, Platelet Count 120L, Mean Platelet Volume 6.6, Neutrophils (%) (Auto) 58.3, Lymphocytes ( %) (Auto) 30.1, Monocytes (%) (Auto) 9.5, Eosinophils (%) (Auto) 1.2, Basophils (%) (Auto) 0.9, Sodium Level 141, Potassium Level 3.2L, Chloride Level 111H, Carbon Dioxide Level 24, Anion Gap 6, Blood Urea Nitrogen 7, Creatinine 0.8, Estimat Glomerular Filtration Rate > 60, Glucose Level 119H, Calcium Level 8.3L Current Medications Medications (Trade) Dose Ordered Sig/Awa Route PRN Reason Start Time Stop Time Status Last Admin Dose Admin Acetaminophen (Tylenol) 650 mg Q6H PRN ORAL Fever 04/18/19 16:45 05/18/19 16:44 Acetaminophen (Tylenol) 650 mg Q6H PRN ORAL Mild Pain (Pain Scale 1-3) 04/18/19 16:45 05/18/19 16:44 Dextrose (Dextrose 50%) 25 ml Q30M PRN IV Hypoglycemia 04/19/19 18:30 05/19/19 18:29 Dextrose (Dextrose 50%) 50 ml Q30M PRN IV Hypoglycemia 04/19/19 18:30 05/19/19 18:29 Insulin Aspart (NovoLOG) BEFORE MEALS AND HS SUBQ 04/19/19 21:00 05/19/19 20:59 04/19/19 21:20 Insulin Aspart (NovoLOG) 6 units BEFORE MEALS SUBQ 04/20/19 06:30 05/20/19 06:29 04/20/19 07:20 Insulin Detemir (Levemir) 14 units BID SUBQ 04/19/19 19:00 05/19/19 18:59 04/20/19 08:52 Pantoprazole (Protonix) 40 mg DAILY IV 04/19/19 09:00 05/19/19 08:59 04/20/19 08:49 Piperacillin Sod/ Tazobactam Sod 3.375 gm/Sodium Chloride 110 ml @ 27.5 mls/hr Q8H IVPB 04/18/19 18:00 04/25/19 17:59 04/20/19 09:01 Potassium Chloride/Sodium Chloride 1,000 ml @ 100 mls/hr Q10H IV 04/19/19 19:30 05/19/19 19:29 04/20/19 06:17 Rik Zamora MD Apr 20, 2019 09:05
--- NOTE | 2019-04-20 09:44 | NUR ---
NURSE NOTES: Spoke with Dr. Zamora on the phone. MD updated on pt's condition. Okay to transfer the patient to tele.
--- NOTE | 2019-04-20 12:10 | NUR ---
NURSE NOTES: patient eating lunch in bed. No acute distress noted. VSS. Denies any pain, n/v.
--- NOTE | 2019-04-20 12:18 | NUR ---
PRODUCTION MANAGERDELIMER SI: AMS,HYPERGLYCEMIA T. 98.0 HR 68 RR 15 B/P 103/67 RA 98% WBC 4.6 K 3.2 GLU 119 IS: NS KCL@ 100ML/HR ZOSYN IV K-DUR PO INSULIN SUBC. ICU STATUS
--- NOTE | 2019-04-20 13:51 | NUR ---
Social Work This SW met with patient, currently in the ICU who appears alert/oriented, while conversing via hand written notes due to expressive aphasia. This SW spoke with patients sister, Brenna Eden ([phone]) who is the POA for patient, who explains patient was living with mother and sister, but was abusing alcohol and combative, showing anger outbursts with them. Patient was then homeless, and placed with [facility] [employer] [facility] [employer] Reyna Espinoza ( ) who [facility] ([phone]) and planning to return there upon discharge (this SW spoke with caregiver from [facility], Geovanna to verify; he will accept patient when ready for discharge). Sister explains patient has [facility]: ID# [id number]. Marilin, admitting informed. Patients SSN: [id number].
--- NOTE | 2019-04-20 14:18 | NUR ---
NURSE NOTES: patient is resting in bed comfortably. pt's private caregiver at bedside. caregiver will fax home med list later today.
--- NOTE | 2019-04-20 16:00 | NUR ---
NURSE NOTES: patient is awake, watching TV in bed. On room air. Breathing even and unlabored. No acute distress noted. VSS. No c/o pain at this time.
--- NOTE | 2019-04-20 17:26 | NUR ---
NURSE NOTES: BS 152 noted. 6units + sliding scale 4units given. patient eating in bed. Patient kept clean and dry.
--- NOTE | 2019-04-20 19:19 | NUR ---
HAND-OFF: Report given to KIKI Barone.
--- NOTE | 2019-04-20 19:56 | NUR ---
NURSE NOTES: pt awake and alert no acute distress noted no c/o pain to be transfer to tele today
--- NOTE | 2019-04-20 22:00 | NUR ---
NURSE NOTES pt c/o off head acke medicated with tylenol 650mg po as order
[2019-04-21] VITALS (16 sets, daily range): BP systolic 93–121; BP diastolic 63–82
--- NOTE | 2019-04-21 | NUR ---
NURSE NOTES: pt asleep no c/o pain vs stable
[2019-04-21] MEDS: NS w/KCl 20mEq 1000ml 1,000 ML IV SCH (01:04)
--- NOTE | 2019-04-21 02:00 | NUR ---
NURSE NOTES: Patient in bed sleeping comfortably. no SOB, no acute distress noted. Urinal at bedside. no s/s of hypo/hyperglycemia. No s/s of hypo/hyperglycemia. Instructed patient to use call light for assistance. Bed alarm on. bed locked and in low position. Will continue plan of care.
[2019-04-21] MEDS: Zoysn 3.37gm in NS 100ML IVPB SCH ×2 (02:09→09:12)
--- NOTE | 2019-04-21 04:00 | NUR ---
NURSE NOTES: Patient in bed resting comfortably. no SOB, no acute distress noted. Urinal at bedside. no s/s of hypo/hyperglycemia. No s/s of hypo/hyperglycemia. Bed alarm on. bed locked and in low position. Will continue plan of care.
--- NOTE | 2019-04-21 06:00 | NUR ---
NURSE NOTES: Patient able to repositioned with assist. Urinal at bedside. Possible transfer to tele to day. No s/s of hypo/hyperglycemia. No s/s of acute distress noted. Call light within easy reach.
[2019-04-21] MEDS: NovoLOG Insulin Flexpen SUBQ SCH ×3 (06:25→12:26)
--- NOTE | 2019-04-21 06:30 | General Progress Note ---
Assessment/Plan Problem List: (1) Skull defect ICD Codes: M95.2 - Other acquired deformity of head SNOMED: 142042536, 502033573 (2) DKA (diabetic ketoacidoses) ICD Codes: E11.10 - Type 2 diabetes mellitus with ketoacidosis without coma SNOMED: 731220460, 64111690 Qualifiers: Qualified Codes: E13.10 - Other specified diabetes mellitus with ketoacidosis without coma (3) Sepsis ICD Codes: A41.9 - Sepsis, unspecified organism SNOMED: 13386194, 70583185 Qualifiers: Qualified Codes: A41.9 - Sepsis, unspecified organism Assessment/Plan: continue Levemir 14 units bid continue Novolog 6 units ac tid continue NISS ac / hs Subjective ROS Limited/Unobtainable: Yes Allergies: Coded Allergies: No Known Allergies (Unverified , 04/18/19) Subjective events noted glucose values in fair range Item Value Date Time Bedside Blood Glucose 127 mg/dl H 04/21/19 0625 Bedside Blood Glucose 130 mg/dl H 04/20/19 2100 Bedside Blood Glucose 152 mg/dl H 04/20/19 1713 Bedside Blood Glucose 188 mg/dl H 04/20/19 1130 Bedside Blood Glucose 110 mg/dl 04/20/19 0852 Bedside Blood Glucose 110 mg/dl 04/20/19 0630 Objective Last 24 Hour Vital Signs Date Time Temp Pulse Resp B/P (MAP) Pulse Ox O2 Delivery O2 Flow Rate FiO2 04/21/19 06:00 59 11 93/69 (77) 98 04/21/19 05:00 58 15 104/67 (79) 98 04/21/19 04:00 59 04/21/19 04:00 Room Air 04/21/19 04:00 98.0 56 12 112/80 (91) 98 04/21/19 03:00 62 12 94/66 (75) 97 04/21/19 02:00 61 14 96/65 (75) 96 04/21/19 01:00 62 20 106/69 (81) 97 04/21/19 00:00 82 04/21/19 00:00 98.0 71 15 99/63 (75) 98 04/21/19 00:00 Room Air 04/20/19 23:00 73 12 104/72 (83) 100 04/20/19 22:00 70 16 99/58 (72) 98 04/20/19 21:00 72 16 99/67 (78) 97 04/20/19 20:00 98.6 72 15 102/74 (83) 98 04/20/19 20:00 Room Air 04/20/19 20:00 78 04/20/19 19:00 76 15 104/77 (86) 98 04/20/19 18:00 89 15 108/73 (85) 99 04/20/19 17:00 73 14 108/69 (82) 99 04/20/19 16:00 73 04/20/19 16:00 Room Air 04/20/19 16:00 98.6 73 15 107/69 (82) 98 04/20/19 15:00 82 17 113/76 (88) 98 04/20/19 14:00 87 17 113/74 (87) 100 04/20/19 13:00 88 13 111/74 (86) 100 04/20/19 12:00 Room Air 04/20/19 12:00 91 04/20/19 12:00 98.8 80 16 107/78 (88) 99 04/20/19 11:00 67 13 88/53 (65) 99 04/20/19 10:00 71 15 108/71 (83) 99 04/20/19 09:00 89 15 103/67 (79) 98 04/20/19 08:00 Room Air 04/20/19 08:00 90 04/20/19 08:00 98.0 90 14 112/69 (83) 98 04/20/19 07:00 68 14 103/69 (80) 97 Intake and Output 04/20/19 04/21/19 18:59 06:59 Intake Total 1829.17 ml 1560.0 ml Output Total 1400 ml 750 ml Balance 429.17 ml 810.0 ml Intake Oral 520 ml 550 ml IV Total 1309.17 ml 1010.0 ml Output Urine Total 1400 ml 750 ml # Voids 3 4 Height (Feet): 5 Height (Inches): 9.00 Weight (Pounds): 155 General Appearance: no apparent distress EENT: other - skull defect Neck: normal alignment Cardiovascular: normal rate Respiratory/Chest: lungs clear Abdomen: normal bowel sounds Extremities: other Objective Current Medications Medications (Trade) Dose Ordered Sig/Awa Route PRN Reason Start Time Stop Time Status Last Admin Dose Admin Acetaminophen (Tylenol) 650 mg Q6H PRN ORAL Mild Pain (Pain Scale 1-3) 04/18/19 16:45 05/18/19 16:44 04/20/19 22:48 Acetaminophen (Tylenol) 650 mg Q6H PRN ORAL Fever 04/18/19 16:45 05/18/19 16:44 Dextrose (Dextrose 50%) 25 ml Q30M PRN IV Hypoglycemia 04/19/19 18:30 05/19/19 18:29 Dextrose (Dextrose 50%) 50 ml Q30M PRN IV Hypoglycemia 04/19/19 18:30 05/19/19 18:29 Insulin Aspart (NovoLOG) BEFORE MEALS AND HS SUBQ 04/19/19 21:00 05/19/19 20:59 04/21/19 06:25 Insulin Aspart (NovoLOG) 6 units BEFORE MEALS SUBQ 04/20/19 06:30 05/20/19 06:29 04/21/19 06:25 Insulin Detemir (Levemir) 14 units BID SUBQ 04/19/19 19:00 05/19/19 18:59 04/20/19 17:13 Pantoprazole (Protonix) 40 mg DAILY IV 04/19/19 09:00 05/19/19 08:59 04/20/19 08:49 Piperacillin Sod/ Tazobactam Sod 3.375 gm/Sodium Chloride 110 ml @ 27.5 mls/hr Q8H IVPB 04/18/19 18:00 04/25/19 17:59 04/21/19 02:09 Potassium Chloride/Sodium Chloride 1,000 ml @ 100 mls/hr Q10H IV 04/19/19 19:30 05/19/19 19:29 04/21/19 01:04 Octavio Arrington MD Apr 21, 2019 06:30
--- NOTE | 2019-04-21 07:09 | NUR ---
HAND-OFF: Report given to Ileana SWANSON.
--- NOTE | 2019-04-21 07:10 | NUR ---
NURSE NOTES: RECEIVED PATIENT FROM Ade CHRISTINA RN. PATIENT IS LYING IN BED AWAKE, AND RESPONSIVE. HOOKED TO NEW MEDIA STRATEGIST. HR OF 57. ON ROOM AIR. NO SIGNS OF DISTRESS OF THE MOMENT. IV ON R W G20 WITH IVF RUNNING D5 NS + 20 MEQS KCL AT 100ML./HR. CALL LIGHT WITHIN REACH. SIDE RAILS UP. BED AT LOWEST POSITION. WILL CONTINUE TO MONITOR.
--- NOTE | 2019-04-21 09:00 | NUR ---
NURSE NOTES: PATIENT SEEN EATING HIS BREAKFAST TRAY. STILL ON ROOM AIR. NO SIGNS OF DISTRESS. WILL CONTINUE TO MONITOR.
[2019-04-21] MEDS: Pantoprazole Inj IV SCH (09:10)
[2019-04-21] MEDS: Levemir Flexpen SUBQ SCH (09:11)
--- NOTE | 2019-04-21 09:58 | NUR ---
*-* INSURANCE *-* ALL CLINICALS AND REVIEWS HAVE BEEN FAXED TO: TERES[facility] F: [phone]
--- NOTE | 2019-04-21 11:00 | NUR ---
NURSE NOTES: PATIENT KEPT CLEAN AND DRY. NO SIGNS OF DISTRESS. WILL CONTINUE TO MONITOR.
--- NOTE | 2019-04-21 11:44 | NUR ---
AUTOMATIC PATTERN EDGERCAKE MIXER SI: AMS.HYPERGLYCEMIA T. 98.9 HR 56 RR 13 B/P 93/69 IS: IVF NS KCL@ 100ML/HR ZOSYN IV LEVEMIR SUBC TELE STATUS
[2019-04-21] MEDS ORDERED: NOVOLOG100 UNITS1 SUBQ (11:57)
[2019-04-21] MEDS ORDERED: LEVEMIR FL100 UNIT/1 SUBQ (11:57)
--- NOTE | 2019-04-21 12:13 | NUR ---
RD ASSESSMENT & RECOMMENDATIONS SEE CARE ACTIVITY FOR COMPLETE ASSESSMENT DAILY ESTIMATED NEEDS: Needs based on DM, 70kg 25-30 kcals/kg 6789-2450 total kcals 1-1.5 g protein/kg 70-105 g total protein 25-30 mL/kg 4702-5693 total fluid mLs NUTRITION DIAGNOSIS: Altered nutrition related lab values r/t diabetes and DKA as evidenced by A1C 11.8, BG on adm 539, 4+ uglu on adm, + acetone on adm. CURRENT DIET: now CCHO MED soft easy chew PO DIET RECOMMENDATIONS: CCHO MED/ texture as tolerated ADDITIONAL RECOMMENDATIONS: 1) ABALONE SHELLER eval as needed for appropriate texture d/t h/o craniotomy 2) B-complex daily for max glucose metabolism 3) Weekly weights 4) Check lytes daily, replete as needed
--- NOTE | 2019-04-21 13:18 | NUR ---
NURSE NOTES: ALISHA SPOKE WITH MAINTENANCE DIRECTOR FOR THE [employer]ARD AND CARE ARRANGEMENT AND HE WILL COME TO CUSTOMER SUCCESS ASSOCIATE THE PATIENT IN THE AFTERNOON. JOSE LUIS HIS SISTER INFORMED OF THE TRANSFER. WILL CONTINUE TO MONITOR.
--- NOTE | 2019-04-21 16:00 | NUR ---
NURSE NOTES: WHEELED THE PATIENT OUT FROM THE UNIT. HE WAS ACCOMPANIED BY ENEDINA [employer]PER[employer]ENDENT [employer] FROM [facility]. VSS.
[2019-04-21] MEDS ORDERED: NS 275ml ONE (16:25)
[2019-04-21] MEDS ORDERED: D5 1/2NS 1000ml IV ONE (16:25)
--- NOTE | 2019-04-22 13:19 | Discharge Summary ---
Discharge Summary Discharge Summary _ DATE OF ADMISSION: 04/18/2019 DATE OF DISCHARGE: 04/21/2019 DISCHARGED BY: Dr. Zamora REASON FOR ADMISSION: 43 years old male with past medical history of diabetes mellitus, presented from [facility] for evaluation of hyperglycemia. According to the nursing staff at the [facility], Accu-Chek was high for the last 4 days. Patient has prior history of craniotomy , nonverbal at baseline with right hemiparesis , and was unable to provide additional information. Upon evaluation patient was tachycardic with heart rate 122 , tachypneic with respiratory rate 24. Laboratory work-up revealed significant leukocytosis WBC 20, stable hemoglobin and hematocrit. Stable electrolytes. BUN 16, creatinine 1.9. Glucose 539. Anion gap 30, CO2- 6, lactic acid 3.8. AST 53, ALT 49. Acetone level positive. Urinalysis revealed +4 glucose, +2 protein , +4 ketones. ABG revealed evidence of metabolic acidosis. EKG revealed sinus tachycardia, no acute ischemic changes. Chest x-ray revealed no acute cardiopulmonary pathology. Patient was diagnosed with diabetic ketoacidosis , leukocytosis , possible sepsis. In emergency department patient received fluid challenge, bicarbonate, pancultured, and started on broad-spectrum antibiotic. Patient started on insulin drip and admitted to ICU for further management . CONSULTANTS: [employer] Dr. Arrington [facility] COURSE: Patient admitted to ICU. Patient was on IV fluids and insulin drip as per protocol. Potassium was replaced. [employer] seen and evaluated patient . The next day leukocytosis resolved , no clear evidence of infection. When anion gap closed , insulin drip was discontinued . patient started on long-acting Levemir and pre-meal short acting insulin , in addition to a sliding scale of insulin. Hemoglobin A1c-11.8 , clearly not at goal. Patient will need close monitoring and further optimization of anti-glycemic regimen as outpatient. GI prophylaxis provided. Renal parameters and electrolytes were closely monitored. Electrolytes/potassium and phosphorus -corrected . Lactic acid down to normal 1.6. Blood culture came back negative. No fevers , no chills. Chest x-ray negative . Urinalysis negative . No clear evidence of infection. Leukocytosis was probably reactive secondary to DKA. Initially started empiric antibiotic stopped. Blood sugar stabilized. Patient clinically improved and was ready for transfer back to assisted living for further management. FINAL DIAGNOSES: Diabetic ketoacidosis -resolved History of craniotomy Right hemiparesis BKA Leukocytosis-resolvedv DISCHARGE MEDICATIONS: See Medication Reconciliation list. DISCHARGE INSTRUCTIONS: Patient was discharged to [facility]. Outpatient follow-up with primary care provider within 1 week. I have been assigned to dictate discharge summary for this account. I was not involved in the patient's management. Melissa Lopez NP Apr 22, 2019 13:19
== END 2019-04-21 16:26 | disposition home or self-care (01) | DRG 720 ==
LOC: EDBD 11:07 → EMR 11:27 → ICU 11:48 → EDBEDREQSVC 12:21 → EDBEDREQ 12:21
DX: A41.9 Sepsis, unspecified organism (principal); E11.10 Type 2 diabetes mellitus with ketoacidosis without coma; G81.91 Hemiplegia, unspecified affecting right dominant side; M95.2 Other acquired deformity of head; Z89.519 Acquired absence of unspecified leg below knee
CPT/HCPCS: 36415; 36600; 71045; 80048; 80053; 81003; 82009; 82803; 82962; 83036; 83605; 83735; 83880; 84100; 85007; 85025; 87040; 87081; 93005; 96361; 96365; 96366; 96367; 96368; 96375; 99291; J1815; J8499; S5561

== ENCOUNTER 2019-04-24 19:36 | Emergency (ER) | payer MEDICAID, OTHER ==
[~2019-04-24] VITALS: Ht 175.3 cm; Wt 74.8 kg
[~2019-04-24 19:36] MED LIST: LEVEMIR FL100 UNIT/1 SUBQ; NOVOLOG100 UNITS1 SUBQ; insulin
[2019-04-24 19:45] VITALS: BP 100/60
--- NOTE | 2019-04-24 19:46 | NUR ---
ED Nurse Note: Patient was BIBA from the street due ti fall. Stated that was walking, felt dizzy, and fell. AAO x4, VSS at this time, skin is warm to touch. Patient presented with strong smell of alcohol.
--- NOTE | 2019-04-24 20:20 | NUR ---
ED Nurse Note: IV ACCESS ESTABLISHED. BLOOD COLLECTED; SENT DOWN TO LAB.
--- NOTE | 2019-04-24 20:32 | Diagnostic Imaging Report ---
Indications: Head pain, status post fall Technique: Spiral acquisitions obtained through the brain. Angled axial and coronal 5 x 5 mm slices were reconstructed. Total dose length product 1354.64 mGycm. CTDI vol(s) 70.38 mGy. Dose reduction achieved using automated exposure control Comparison: None. Findings: There is a large left frontotemporoparietal craniectomy defect with overlying mesh. There is encephalomalacia in the high left parietal lobe extending into the posterior frontal region. There are also areas of encephalomalacia in the right frontal lobe and anterior right temporal lobe. There is mild enlargement of the ventricles and extra-axial CSF spaces. No acute intracranial hemorrhage or edema, mass effect, nor midline shift. There is some ex vacuo dilatation of the left lateral ventricle. Impression: Negative for acute intracranial bleed or mass effect Evidence of left convexity craniectomy and cranioplasty Multiple areas of encephalomalacia, as described consistent with prior infarcts or traumatic insults This agrees with the preliminary interpretation provided overnight by [facility]. The CT scanner at [facility] is accredited by the [employer] and the scans are performed using protocols designed to limit radiation exposure to as low as reasonably achievable to attain images of sufficient resolution adequate for diagnostic evaluation.
[2019-04-24 20:42] LABS: BASOPHILS % (AUTO) 1.5 % (0.0-2.0); EOSINOPHILS % (AUTO) 0.4 % (0.0-3.0); HEMATOCRIT 35.3 % (42.0-52.0); HEMOGLOBIN 12.3 G/DL (14.2-18.0); LYMPHOCYTES % (AUTO) 22.4 % (20.0-45.0); MEAN CORPUSCULAR VOLUME 89 FL (80-99); NEUTROPHILS % (AUTO) 64.7 % (45.0-75.0); PLATELET COUNT 190 K/UL (150-450); RED BLOOD COUNT 3.95 M/UL (4.70-6.10); RED CELL DISTRIBUTION WIDTH 14.1 % (11.6-14.8); WHITE BLOOD COUNT 5.4 K/UL (4.8-10.8)
[2019-04-24 21:04] LABS: ANION GAP 12 mmol/L (5-15); BLOOD UREA NITROGEN 15 mg/dL (7-18); CALCIUM 8.8 MG/DL (8.5-10.1); CARBON DIOXIDE 25 MMOL/L (21-32); CHLORIDE 103 MMOL/L (98-107); POTASSIUM 4.5 MMOL/L (3.5-5.1); SODIUM 140 MMOL/L (136-145)
[2019-04-24 21:08] LABS: ALANINE AMINOTRANSFERASE 140 U/L (12-78); ALBUMIN 3.3 G/DL (3.4-5.0); ALKALINE PHOSPHATASE 140 U/L (46-116); ASPARTATE AMINO TRANSFERASE 595 U/L (15-37); BILIRUBIN,TOTAL 0.4 MG/DL (0.2-1.0)
[2019-04-24] MEDS ORDERED: Insulin Human Regular 100units/ml 3ml IV ONE (21:45)
--- NOTE | 2019-04-24 22:29 | Emergency Room Report ---
History of Present Illness General Chief Complaint: Head Injury Source: Patient, EMS Present Illness HPI 43-year-old male presents ED for evaluation. Brought in by EMS from Street. Status post fall with head injury. Laceration to the right side of head. Patient states he does not remember what happened. EMS reports possible EtOH. History of craniotomy. Patient denies pain. Denies nausea or vomiting. Tetanus unknown. No other relieving factors. Denies any other associated symptoms Allergies: Coded Allergies: No Known Allergies (Unverified , 04/24/19) Patient History Past Medical History: DM Past Surgical History: none, other - craniotomy Pertinent Family History: none Social History: Reports: alcohol use; Denies: smoking, drug use Immunizations: UTD Reviewed Nursing Documentation: PMH: Agreed; PSxH: Agreed Nursing Documentation-PMH Hx Cardiac Problems: No Hx Diabetes: Yes Hx Cancer: No Hx Gastrointestinal Problems: No Hx Neurological Problems: Yes - traumatic brain injury 2016 Review of Systems All Other Systems: limited Physical Exam Vital Signs Date Time Temp Pulse Resp B/P (MAP) Pulse Ox O2 Delivery O2 Flow Rate FiO2 04/24/19 19:26 98.1 88 16 100/60 (73) 98 Room Air Sp02 EP Interpretation: reviewed, normal General Appearance: other - intoxicated Head: other - craniotomy. Eyes: bilateral eye normal inspection, bilateral eye PERRL ENT: normal ENT inspection Neck: normal inspection Respiratory: chest non-tender, lungs clear, normal breath sounds, speaking full sentences Cardiovascular #1: regular rate, rhythm, no edema Gastrointestinal: normal bowel sounds, non tender, soft, non-distended, no guarding, no rebound Rectal: deferred Genitourinary: no CVA tenderness Musculoskeletal: normal inspection Neurologic: other - intoxicated Psychiatric: other - intoxicated Skin: other - 1 cm laceration to R gnosticist Lymphatic: no adenopathy Procedures Laceration/Wound Repair Laceration/Wound Repair : Consent: Verbal Wound Location: other - R gnosticist Wound's Depth, Shape: linear Wound Explored: clean Betadine Prep?: No Wound Debrided: minimal Wound Repaired With: Dermabond Layer Closure?: No Sterile Dressing Applied?: No Splint Applied?: No Sling Applied?: No Patient Tolerated: Well Complications: None Medical Decision Making Diagnostic Impression: Primary Impression: Acute head injury Qualified Codes: S09.90XA - Unspecified injury of head, initial encounter Additional Impressions: Laceration Hyperglycemia Alcohol abuse ER Course Hospital Course 43 yo M presents with fall, laceration above R eyebrow, ? ETOH use. h/o diabetes Differential diagnoses include: ETOH, hyperglycemia, dehydration Clinical course patient placed on stretcher. On monitor tech. After initial history and physical ordered labs, IV fluids, CT Head. given TDAP Labs reviewed-electrolytes okay, no leukocytosis, hemoglobin/hematocrit stable, glucose > 400 no evidence of DKA. ETOH elevated CT brain shows no acute pathology. s/p craniotomy wound Irrigated. Laceration repaired with Dermabond. Patient given insulin and IV fluids. Repeat Accu-Chek improved. Patient is not clinically sober. Facility at which patient resides contacted us and will accept patient back tonight safe for discharge close outpatient follow-up. Will provide referrals i. I feel this is a highly complex case requiring extensive working including EKG/Rhythm strip, Xray/CT/US, Blood/urine lab work, repeat exams while in ED, and administration of strong opiates/narcotics for pain control, admission to hospital or close patient follow up. Diagnosis -acute head injury, laceration, hyperglycemia, alcohol abuse Stable and discharged to home. wound care instructsion given. Followup with PMD. Return to ED if symptoms recur or worsen Labs Test 04/24/19 20:20 04/24/19 20:40 White Blood Count 5.4 K/UL (4.8-10.8) Red Blood Count 3.95 M/UL (4.70-6.10) Hemoglobin 12.3 G/DL (14.2-18.0) Hematocrit 35.3 % (42.0-52.0) Mean Corpuscular Volume 89 FL (80-99) Mean Corpuscular Hemoglobin 31.1 PG (27.0-31.0) Mean Corpuscular Hemoglobin Concent 34.9 G/DL (32.0-36.0) Red Cell Distribution Width 14.1 % (11.6-14.8) Platelet Count 190 K/UL (150-450) Mean Platelet Volume 5.3 FL (6.5-10.1) Neutrophils (%) (Auto) 64.7 % (45.0-75.0) Lymphocytes (%) (Auto) 22.4 % (20.0-45.0) Monocytes (%) (Auto) 11.0 % (1.0-10.0) Eosinophils (%) (Auto) 0.4 % (0.0-3.0) Basophils (%) (Auto) 1.5 % (0.0-2.0) Sodium Level 140 MMOL/L (136-145) Potassium Level 4.5 MMOL/L (3.5-5.1) Chloride Level 103 MMOL/L (98-107) Carbon Dioxide Level 25 MMOL/L (21-32) Anion Gap 12 mmol/L (5-15) Blood Urea Nitrogen 15 mg/dL (7-18) Creatinine 1.0 MG/DL (0.55-1.30) Estimat Glomerular Filtration Rate > 60 mL/min (>60) Glucose Level 432 MG/DL (74-106) Calcium Level 8.8 MG/DL (8.5-10.1) Total Bilirubin 0.4 MG/DL (0.2-1.0) Aspartate Amino Transf (AST/SGOT) 595 U/L (15-37) Alanine Aminotransferase (ALT/SGPT) 140 U/L (12-78) Alkaline Phosphatase 140 U/L (46-116) Total Protein 6.7 G/DL (6.4-8.2) Albumin 3.3 G/DL (3.4-5.0) Globulin 3.4 g/dL Albumin/Globulin Ratio 1.0 (1.0-2.7) Salicylates Level 0.7 ug/mL (2.8-20) Acetaminophen Level < 2 MCG/ML (10-30) Serum Alcohol 125 mg/dL Urine Opiates Screen Negative (NEGATIVE) Urine Barbiturates Screen Negative (NEGATIVE) Phencyclidine (PCP) Screen Negative (NEGATIVE) Urine Amphetamines Screen Negative (NEGATIVE) Urine Benzodiazepines Screen Negative (NEGATIVE) Urine Cocaine Screen Negative (NEGATIVE) Urine Marijuana (THC) Screen Negative (NEGATIVE) CT/MRI/US Diagnostic Results CT/MRI/US Diagnostic Results : Imaging Test Ordered: CT Head Impression No intracranial hemorrhage. No fracture. Postsurgical changes from a left hemispheric cranioplasty. Encephalomalacia within the left frontoparietal lobes, right frontal lobe, and right temporal lobe. No acute appearing infarct. The paranasal sinuses and mastoid air cells are clear. Last Vital Signs Date Time Temp Pulse Resp B/P (MAP) Pulse Ox O2 Delivery O2 Flow Rate FiO2 04/24/19 19:45 98.1 16 100/60 98 Room Air 04/24/19 19:26 88 Status: improved Disposition: HOME, SELF-CARE Condition: Stable Referrals: [facility],REFERRING (PCP) Ashutosh Bernabe MD Apr 24, 2019 22:28
[2019-04-24] MEDS ORDERED: Tetanus/Diptheria/Pertussis IM ONE (22:30)
[2019-04-24 22:52] VITALS: BP 115/76
[2019-04-25 00:17] VITALS: BP 115/76
--- NOTE | 2019-04-25 00:17 | NUR ---
ER DISCHARGE NOTE: Patient is cleared to be discharged per ERMD, pt is aox4, on room air, with stable vital signs. pt was given dc and prescription instructions, pt was able to verbalize understanding, pt id band and iv site removed without complications. pt is able to ambulate with steady gait. pt took all belongings.
== END 2019-04-25 00:18 | disposition home or self-care (01) ==
LOC: EDBD 19:36 → EMR 20:28
DX: S01.81XA Laceration without foreign body of other part of head, initial encounter (principal); S09.90XA Unspecified injury of head, initial encounter; E11.65 Type 2 diabetes mellitus with hyperglycemia; Z87.820 Personal history of traumatic brain injury; Z23 Encounter for immunization; F10.10 Alcohol abuse, uncomplicated; Y90.6 Blood alcohol level of 120-199 mg/100 ml; W18.30XA Fall on same level, unspecified, initial encounter; Y92.410 Unspecified street and highway as the place of occurrence of the external cause
CPT/HCPCS: 12011; 36415; 70450; 80053; 80307; 80329; 85025; 90471; 90715; 96361; 96374; 99284; J1815; Z7502

== ENCOUNTER 2019-06-06 19:58 | Emergency (ER) | payer OTHER ==
[~2019-06-06] VITALS: Ht 177.8 cm; Wt 68.0 kg
[2019-06-06 20:04] VITALS: BP 128/75
--- NOTE | 2019-06-06 20:09 | NUR ---
ED Nurse Note: Patient was BIBA from home due to ETOH. Per paramedics he was laying down infront of his house. Patient presented with strong smell of alcohol, AAO x1, VSS at this time.
--- NOTE | 2019-06-06 20:57 | Emergency Room Report ---
History of Present Illness General Chief Complaint: Alcohol Intoxication Present Illness HPI Patient is a 44-year-old male brought in by EMS after increased confusion. Patient reportedly had been drinking alcohol. He had prior history of craniotomy and was noted to have some resulting right-sided hemiplegia. Patient was brought in by EMS. (Casey Jackson MD) Allergies: Coded Allergies: No Known Allergies (Unverified , 04/24/19) Patient History Reviewed Nursing Documentation: PMH: Agreed; PSxH: Agreed (Casey Jackson MD) Nursing Documentation-PMH Past Medical History: Deferred Hx Cardiac Problems: No Hx Diabetes: Yes Hx Cancer: No Hx Gastrointestinal Problems: No Hx Neurological Problems: Yes - traumatic brain injury 2015 (Casey Jackson MD) Review of Systems All Other Systems: limited - mental status (Casey Jackson MD) Physical Exam Vital Signs Date Time Temp Pulse Resp B/P (MAP) Pulse Ox O2 Delivery O2 Flow Rate FiO2 06/06/19 19:50 98.2 75 18 128/75 (92) 99 Room Air Sp02 EP Interpretation: reviewed, normal General Appearance: normal inspection, alert, Chronically Ill Head: other - prior craniotomy with skull defect ENT: normal ENT inspection, hearing grossly normal, normal voice Neck: normal inspection, full range of motion, supple, no bony tend Respiratory: normal inspection, lungs clear, normal breath sounds, no respiratory distress, no retraction, no wheezing Cardiovascular #1: regular rate, rhythm, no edema Gastrointestinal: normal inspection, normal bowel sounds, non tender, soft, no guarding, no hernia Genitourinary: no CVA tenderness Musculoskeletal: normal inspection, back normal, normal range of motion Neurologic: normal inspection, alert, responsive, speech normal, motor weakness - right upper extermity and right lower extremity Psychiatric: normal inspection, judgement/insight normal, mood/affect normal (Casey Jackson MD) Medical Decision Making Diagnostic Impression: Primary Impression: Acute alcoholic intoxication Qualified Codes: F10.920 - Alcohol use, unspecified with intoxication, uncomplicated Additional Impressions: Skull defect Abrasion hand ER Course Patient is a 44-year-old male presents after increased altered mental status. He differential diagnosis included but was not limited to intoxication, seizure , ischemic stroke, subarachnoid hemorrhage, hypoglycemia, spinal cord injury, neurodegenerative disorder, urinary tract infection, hypoxemia. Patient has a benign exam and does not appear to require any imaging at this time. X-ray imaging of the hand was ordered which the patient refused. Patient was noted to be awake. He was poorly cooperative however in no apparent distress. Patient was observed in the emergency department. Patient was endorsed to Dr. Wiggins pending sobriety. (Casey Jackson MD) ER Course Signed out to me. He presents with alcohol intoxication. He has been sleeping here for several hours. Now more awake. Will observe him until more clinical sobriety. Will discharge in the morning. (Emmanuel Wiggins MD) Last Vital Signs Date Time Temp Pulse Resp B/P (MAP) Pulse Ox O2 Delivery O2 Flow Rate FiO2 06/06/19 20:04 75 18 Room Air 06/06/19 20:04 98.2 128/75 99 Status: improved (Casey Jackson MD) Status: improved (Emmanuel Wiggins MD) Disposition: HOME, SELF-CARE Condition: Stable Patient Instructions: Alcohol Intoxication, Krqy-na-[id number] Additional Instructions: Stop drinking alcohol. Follow-up with your doctor in 7 days. Return if worse. Caesy Jackson MD Jun 06, 2019 20:57 Emmanuel Wiggins MD Jun 07, 2019 00:19
[2019-06-07 01:05] VITALS: BP 130/78
--- NOTE | 2019-06-07 01:11 | NUR ---
ED Nurse Note: Patient is resting in the room, VSS at this time, no acute disstress noticed.
[2019-06-07 06:55] VITALS: BP 130/78
--- NOTE | 2019-06-07 06:56 | NUR ---
ED Nurse Note: Pt cleared by health care Provider for discharge. DC instructions/prescription was given and explained to pt and verbalized understanding of teachings. All medical deviecs such as ID band removed. Pt is AAO x4, ambulatory and left with all personal belongings.
[2019-06-07] MEDS ORDERED: LAMOTRIGINE25 M1 PO (15:37)
== END 2019-06-07 06:56 | disposition home or self-care (01) ==
LOC: EDBD 19:58 → EMR 20:36
DX: F10.920 Alcohol use, unspecified with intoxication, uncomplicated (principal); S60.519A Abrasion of unspecified hand, initial encounter; E11.9 Type 2 diabetes mellitus without complications; Z87.820 Personal history of traumatic brain injury; G81.91 Hemiplegia, unspecified affecting right dominant side; X58.XXXA Exposure to other specified factors, initial encounter; Y92.9 Unspecified place or not applicable
CPT/HCPCS: 99282

== ENCOUNTER 2019-06-07 08:50 | Emergency (ER) | payer OTHER ==
[~2019-06-07] VITALS: Ht 170.2 cm; Wt 72.6 kg
[2019-06-07 08:57] VITALS: BP 160/96
[2019-06-07] MEDS ORDERED: levETIRAcetam 1,000mg/NS100ml 100 ML IVPB ONE (09:00)
--- NOTE | 2019-06-07 09:00 | Emergency Room Report ---
History of Present Illness General Chief Complaint: Seizure Source: Medical Record Present Illness HPI Disclaimer: Please note that this report is being documented using [employer] technology. This can lead to erroneous entry secondary to incorrect interpretation by the dictating instrument. HPI: 44-year-old male presents for evaluation after a seizure in the waiting room. Patient has a history of diabetes, craniectomy with residual right-sided hemiplegia and prior documentation of being nonverbal at baseline. He was in the emergency department earlier today for altered level of consciousness secondary to alcohol use. He was discharged earlier this morning was waiting for a ride in our waiting room when he fell to the ground and having generalized convulsions. I witnessed these generalized tonic-clonic convulsions lasting less than 1 minute and aborting spontaneously. He is protecting his airway and was transferred back into the emergency department. Cannot obtain any further information from the patient. Review of medical record does not show any seizure disorder or prescriptions for antiepileptic medications. PMH: Craniectomy, diabetes, alcohol use PSH: Craniectomy Allergies: None listed Social Hx: Alcohol use Allergies: Coded Allergies: No Known Allergies (Unverified , 04/24/19) Nursing Documentation-PMH Past Medical History: No History, Except For Hx Cardiac Problems: No Hx Diabetes: Yes Hx Cancer: No Hx Gastrointestinal Problems: No Hx Neurological Problems: Yes - traumatic brain injury 2016 Review of Systems All Other Systems: negative except mentioned in HPI Physical Exam Vital Signs Date Time Temp Pulse Resp B/P (MAP) Pulse Ox O2 Delivery O2 Flow Rate FiO2 06/07/19 08:53 98.2 115 15 160/96 (117) 96 Room Air General: Sleeping with sonorous respirations. No acute distress. HEENT: Left skull deformity. Atraumatic. No scalp or facial hematomas, lacerations or abrasions. PERRLA. No gaze deviation. Cardiovascular: Tachycardic. S1 and S2 normal. No murmur appreciated Resp: Normal work of breathing. No cough, wheezing or crackles appreciated Abdomen: Abdomen is soft, nondistended. Nontender Skin: Intact. No abrasions, laceration or rash over the exposed skin MSK: Normal tone and bulk. No obvious deformity. Neuro: Somnolent, GCS 8 Medical Decision Making Diagnostic Impression: Primary Impression: Seizure disorder Additional Impression: Acute alcoholic intoxication ER Course 44-year-old male with history of craniectomy and reported right-sided hemiplegia nonverbal at baseline recently seen in the emergency department for alcohol intoxication had a witnessed seizure while in the waiting room awaiting ride home. Will obtain CT scan of the head, broad labs and load with IV Keppra. EKG shows sinus tachycardia but no ischemic changes. Likely require admission Laboratory Tests Test 06/07/19 09:00 06/07/19 09:20 White Blood Count 12.4 K/UL (4.8-10.8) H Red Blood Count 5.22 M/UL (4.70-6.10) Hemoglobin 16.4 G/DL (14.2-18.0) Hematocrit 50.7 % (42.0-52.0) Mean Corpuscular Volume 97 FL (80-99) Mean Corpuscular Hemoglobin 31.5 PG (27.0-31.0) H Mean Corpuscular Hemoglobin Concent 32.4 G/DL (32.0-36.0) Red Cell Distribution Width 12.8 % (11.6-14.8) Platelet Count 252 K/UL (150-450) Mean Platelet Volume 6.0 FL (6.5-10.1) L Neutrophils (%) (Auto) 59.6 % (45.0-75.0) Lymphocytes (%) (Auto) 29.7 % (20.0-45.0) Monocytes (%) (Auto) 8.3 % (1.0-10.0) Eosinophils (%) (Auto) 1.6 % (0.0-3.0) Basophils (%) (Auto) 0.8 % (0.0-2.0) Sodium Level 146 MMOL/L (136-145) H Potassium Level 3.7 MMOL/L (3.5-5.1) Chloride Level 106 MMOL/L (98-107) Carbon Dioxide Level 18 MMOL/L (21-32) L Anion Gap 22 mmol/L (5-15) H Blood Urea Nitrogen 9 mg/dL (7-18) Creatinine 1.1 MG/DL (0.55-1.30) Estimate Glomerular Filtration Rate > 60 mL/min (>60) Glucose Level 305 MG/DL (74-106) H Calcium Level 9.5 MG/DL (8.5-10.1) Total Bilirubin 0.6 MG/DL (0.2-1.0) Aspartate Amino Transferase (AST) 49 U/L (15-37) H Alanine Aminotransferase (ALT) 44 U/L (12-78) Alkaline Phosphatase 163 U/L (46-116) H Total Creatine Kinase 578 U/L (26-308) H Creatine Kinase MB 5.4 NG/ML (0.0-3.6) H Creatine Kinase MB Relative Index 0.9 Troponin I 0.000 ng/mL (0.000-0.056) Total Protein 8.3 G/DL (6.4-8.2) H Albumin 4.3 G/DL (3.4-5.0) Globulin 4.0 g/dL Albumin/Globulin Ratio 1.1 (1.0-2.7) Salicylates Level 1.6 ug/mL (2.8-20) L Acetaminophen Level < 2 MCG/ML (10-30) L Serum Alcohol 10 mg/dL Urine Color Pale yellow Urine Appearance Clear Urine pH 5 (4.5-8.0) Urine Specific [place] 1.020 (1.005-1.035) Urine Protein 2+ (NEGATIVE) H Urine Glucose (UA) 4+ (NEGATIVE) H Urine Ketones 2+ (NEGATIVE) H Urine Blood 3+ (NEGATIVE) H Urine Nitrite Negative (NEGATIVE) Urine Bilirubin Negative (NEGATIVE) Urine Urobilinogen Normal MG/DL (0.0-1.0) Urine Leukocyte Esterase Negative (NEGATIVE) Urine RBC 2-4 /HPF (0 - 0) H Urine WBC 0 /HPF (0 - 0) Urine Squamous Epithelial Cells None /LPF (NONE/OCC) Urine Bacteria None /HPF (NONE) Urine Opiates Screen Negative (NEGATIVE) Urine Barbiturates Screen Negative (NEGATIVE) Phencyclidine (PCP) Screen Negative (NEGATIVE) Urine Amphetamines Screen Negative (NEGATIVE) Urine Benzodiazepines Screen Negative (NEGATIVE) Urine Cocaine Screen Negative (NEGATIVE) Urine Marijuana (THC) Screen Positive (NEGATIVE) H EKG Diagnostic Results EKG Time: 09:00 Rate: tachycardiac Rhythm: NSR Other Impression Sinus tachycardia, normal axis, normal intervals, no ST segment changes Rhythm Strip Diag. Results Rhythm Strip Time: 09:00 EP Interpretation: yes Rate: 110s Rhythm: NSR, no PVC's, no ectopy Reevaluation Time: 15:38 Last Vital Signs Date Time Temp Pulse Resp B/P (MAP) Pulse Ox O2 Delivery O2 Flow Rate FiO2 06/07/19 08:53 98.2 115 15 160/96 (117) 96 Room Air Status: improved Reevaluation Impression CT shows postsurgical changes but no acute traumatic injury or mass. Labs have returned largely unremarkable. No evidence of acute infection, anemia, major electrolyte abnormality or other findings. The patient is awake, alert. He is able to communicate though has difficulty with expressing himself and with memory. He states that he does have a seizure disorder and takes medication but did not know which one. We were able to contact his caregiver from his facility. He currently resides at [facility] where he has a primary doctor and gets his medications regularly. We are told he has not missed any doses. He does have a known seizure disorder and takes lamotrigine 50 mg twice daily. We discussed admission versus discharge with outpatient follow-up. The patient does not want admission at this time and is ANO x4. He is able making his own decisions. Caregiver is able to take the patient back to his facility. I stressed to both of them the need for close follow-up with his PMD to evaluate his medication regimen and make possible changes. We also discussed reasons to return to the ED. They understand and agree with this treatment plan will be discharged home Disposition: HOME, SELF-CARE Condition: Improved Scripts Lamotrigine (LAMOTRIGINE) 25 Mg Tablet 25 MG PO BID for 30 Days, #60 TAB Prov: Jag Garvey MD 06/07/19 Jag Garvey MD Jun 07, 2019 09:00
--- NOTE | 2019-06-07 09:03 | NUR ---
ED Nurse Note: Pt was witnessed by ED staff to have a tonic clonic seizure in the ED waiting room and was laying down on the floor. Noted oral trauma. Pt was recently discharged this morning from [facility] d/t ETOH. Pt is unconscious but responsive to painful stimuli. Seizure precautons implemented: side rails up with pads on both sides. Pt was put on supplemental oxygen at 2LPM. Suctioned airway and Sats 100 %. ER MD aware.
--- NOTE | 2019-06-07 09:18 | NUR ---
ED Nurse Note: Collected blood then sent.
--- NOTE | 2019-06-07 09:20 | NUR ---
ED Nurse Note: Pt is awake at this time but still disoriented. Will continue to assess.
[2019-06-07 09:21] LABS: BASOPHILS % (AUTO) 0.8 % (0.0-2.0); EOSINOPHILS % (AUTO) 1.6 % (0.0-3.0); HEMATOCRIT 50.7 % (42.0-52.0); HEMOGLOBIN 16.4 G/DL (14.2-18.0); LYMPHOCYTES % (AUTO) 29.7 % (20.0-45.0); MEAN CORPUSCULAR VOLUME 97 FL (80-99); MONOCYTES % (AUTO) 8.3 % (1.0-10.0); NEUTROPHILS % (AUTO) 59.6 % (45.0-75.0); PLATELET COUNT 252 K/UL (150-450); RED BLOOD COUNT 5.22 M/UL (4.70-6.10); RED CELL DISTRIBUTION WIDTH 12.8 % (11.6-14.8); WHITE BLOOD COUNT 12.4 K/UL (4.8-10.8)
[2019-06-07 09:31] LABS: APPEARANCE,URINE CLEAR; BILIRUBIN, URINE NEGATIVE (NEGATIVE); COLOR,URINE PALE YELLOW; GLUCOSE, URINE (UA) 4+ (NEGATIVE); KETONES,URINE 2+ (NEGATIVE); LEUKOCYTE ESTERASE ,URINE NEGATIVE (NEGATIVE); NITRITE,URINE NEGATIVE (NEGATIVE); PH,URINE 5 (4.5-8.0); PROTEIN,URINE 2+ (NEGATIVE); UROBILINOGEN,URINE NORMAL MG/DL (0.0-1.0)
[2019-06-07 09:35] LABS: ANION GAP 22 mmol/L (5-15); BLOOD UREA NITROGEN 9 mg/dL (7-18); CALCIUM 9.5 MG/DL (8.5-10.1); CARBON DIOXIDE 18 MMOL/L (21-32); CHLORIDE 106 MMOL/L (98-107); CREATININE 1.1 MG/DL (0.55-1.30); POTASSIUM 3.7 MMOL/L (3.5-5.1); SODIUM 146 MMOL/L (136-145)
[2019-06-07 09:50] LABS: ALANINE AMINOTRANSFERASE 44 U/L (12-78); ALBUMIN 4.3 G/DL (3.4-5.0); ALBUMIN/GLOBULIN RATIO 1.1 (1.0-2.7); ALKALINE PHOSPHATASE 163 U/L (46-116); ASPARTATE AMINO TRANSFERASE 49 U/L (15-37); BILIRUBIN,TOTAL 0.6 MG/DL (0.2-1.0); CKMB 5.4 NG/ML (0.0-3.6); CREATINE KINASE 578 U/L (26-308)
--- NOTE | 2019-06-07 09:55 | NUR ---
ED Nurse Note: Called CT to ff up with procedure.
--- NOTE | 2019-06-07 09:59 | NUR ---
ED Nurse Note: Pt taken down for head CT.
--- NOTE | 2019-06-07 10:13 | NUR ---
ED Nurse Note: Pt came back from CT and stable.
--- NOTE | 2019-06-07 10:34 | NUR ---
ED Nurse Note: CAREGIVER: YUMIKO EASLEYROE-
--- NOTE | 2019-06-07 10:38 | Diagnostic Imaging Report ---
Indications: Seizure, altered mental status Technique: Spiral acquisitions obtained through the brain. Angled axial and coronal 5 x 5 mm slices were reconstructed. Total dose length product 1632 mGycm. CTDI vol(s) 72 mGy. Dose reduction achieved using automated exposure control Comparison: None. Findings: Patient is status post left convexity craniectomy with overlying mesh placement. There is extensive encephalomalacia of the left hemisphere. There is also encephalomalacia of the right anterior temporal lobe and right anterior frontal lobe. No acute intracranial hemorrhage or edema. No mass effect nor midline shift. There is ex vacuo dilatation of the left lateral ventricle. There is sphenoid sinus disease. The mastoids are clear. The orbits are unremarkable. Impression: Postsurgical changes, as described Extensive encephalomalacia as described Negative for acute intracranial bleed or mass effect. The CT scanner at [facility] is accredited by the [employer] and the scans are performed using protocols designed to limit radiation exposure to as low as reasonably achievable to attain images of sufficient resolution adequate for diagnostic evaluation.
[2019-06-07 11:00] VITALS: BP 120/70
[2019-06-07 12:58] VITALS: BP 133/76
--- NOTE | 2019-06-07 14:27 | NUR ---
ED Nurse Note: SPOKE WITH YUMIKO, CHILD DEVELOPMENT CONSULTANT THAT PT. WANTS TO LEAVE THE HOSPITAL AND PER YUMIKO, HE WILL SEND MARY TO PICK PT. UP FROM THE HOSPITAL
--- NOTE | 2019-06-07 14:35 | NUR ---
ED Nurse Note: Pt is completely AAO x4 and follows commands at this time. Pt is aware that he is going to be admitted at the hospital.
[2019-06-07 14:50] VITALS: BP 128/77
--- NOTE | 2019-06-07 15:15 | NUR ---
ED Nurse Note: ERMD is okay to discharge the patient once the primary caregiver is here to pick him up.
[2019-06-07] MEDS ORDERED: LAMOTRIGINE25 M1 PO (15:37)
[2019-06-07 15:52] VITALS: BP 135/82
--- NOTE | 2019-06-07 15:52 | NUR ---
ER DISCHARGE NOTE: Patient is cleared to be discharged per ERMD, pt is aox4, on room air, with stable vital signs. pt was given dc and prescription instructions, pt was able to verbalize understanding, pt id band and iv site removed without complications. pt is able to ambulate with his cane. pt took all belongings and left with his caregiver Arturo.
== END 2019-06-07 15:52 | disposition home or self-care (01) ==
LOC: EMR 09:40 → CANBEDREQ 15:43 → EMR 15:52
DX: G40.909 Epilepsy, unspecified, not intractable, without status epilepticus (principal); F10.129 Alcohol abuse with intoxication, unspecified; E11.9 Type 2 diabetes mellitus without complications; Z87.820 Personal history of traumatic brain injury; G81.91 Hemiplegia, unspecified affecting right dominant side
CPT/HCPCS: 36415; 70450; 80053; 80196; 80307; 80329; 81003; 82550; 82553; 84484; 85025; 96361; 96374; J1953; Z7502; 99284

== ENCOUNTER 2019-10-22 09:59 | Emergency (ER) | payer OTHER ==
[~2019-10-22] VITALS: Ht 172.7 cm; Wt 77.1 kg
[~2019-10-22 09:59] MED LIST changes: +LAMOTRIGINE25 M1 PO
[2019-10-22 10:05] VITALS: BP 129/88
--- NOTE | 2019-10-22 10:05 | NUR ---
ED Nurse Note: patient brought into ED by ambulance [id number] from [facility] due to high blood sugar and running out of insulin. BS on scene is 420 per ems. BS uppon arrival is 425, DR. Tan notified. 

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
--- NOTE | 2019-10-22 10:13 | NUR ---
ED Nurse Note: urinal provided to the patient. patient reports pain 5/10 on the left foot. bruises on the left foot/toes noted. patient is alert awake x3 able to follow commands.
[2019-10-22] MEDS ORDERED: oxyCODONE HCL/Acetaminophen 5/325mg ORAL ONE (10:15)
[2019-10-22 10:27] LABS: BASOPHILS % (AUTO) 0.8 % (0.0-2.0); EOSINOPHILS % (AUTO) 1.1 % (0.0-3.0); HEMATOCRIT 42.5 % (42.0-52.0); HEMOGLOBIN 14.6 G/DL (14.2-18.0); LYMPHOCYTES % (AUTO) 15.7 % (20.0-45.0); MEAN CORPUSCULAR VOLUME 91 FL (80-99); MONOCYTES % (AUTO) 6.6 % (1.0-10.0); NEUTROPHILS % (AUTO) 75.9 % (45.0-75.0); PLATELET COUNT 201 K/UL (150-450); RED BLOOD COUNT 4.69 M/UL (4.70-6.10); RED CELL DISTRIBUTION WIDTH 12.2 % (11.6-14.8)
[2019-10-22 10:39] LABS: ANION GAP 10 mmol/L (5-15); BLOOD UREA NITROGEN 14 mg/dL (7-18); CALCIUM 8.8 MG/DL (8.5-10.1); CARBON DIOXIDE 27 MMOL/L (21-32); CHLORIDE 99 MMOL/L (98-107); POTASSIUM 4.2 MMOL/L (3.5-5.1); SODIUM 136 MMOL/L (136-145)
[2019-10-22 10:48] LABS: ALANINE AMINOTRANSFERASE 20 U/L (12-78); ALBUMIN 3.7 G/DL (3.4-5.0); ALKALINE PHOSPHATASE 153 U/L (46-116); ASPARTATE AMINO TRANSFERASE 15 U/L (15-37); BILIRUBIN,TOTAL 0.7 MG/DL (0.2-1.0); CREATINE KINASE 185 U/L (26-308)
[2019-10-22 11:03] LABS: APPEARANCE,URINE CLEAR; BILIRUBIN, URINE NEGATIVE (NEGATIVE); COLOR,URINE PALE YELLOW; GLUCOSE, URINE (UA) 4+ (NEGATIVE); KETONES,URINE NEGATIVE (NEGATIVE); LEUKOCYTE ESTERASE ,URINE NEGATIVE (NEGATIVE); NITRITE,URINE NEGATIVE (NEGATIVE); PH,URINE 6.5 (4.5-8.0); PROTEIN,URINE NEGATIVE (NEGATIVE); UROBILINOGEN,URINE NORMAL MG/DL (0.0-1.0)
[2019-10-22] MEDS ORDERED: Insulin Human Regular 100units/ml 3ml IV ONE (11:15)
[2019-10-22 12:17] VITALS: BP 127/71
[2019-10-22] MEDS ORDERED: INSULIN AS100 UNIT/3 SQ (14:02)
[2019-10-22] MEDS ORDERED: LEVEMIR FL100 UNIT/1 SUBQ (14:02)
[2019-10-22] MEDS ORDERED: IBUPROFEN600 MG ORAL (14:02)
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
--- NOTE | 2019-10-22 16:54 | NUR ---
ED Nurse Note: sanjiv provided. DR. Dominick lopez with it.
[2019-10-22 18:05] VITALS: BP 128/72
--- NOTE | 2019-10-22 18:06 | NUR ---
ED Nurse Note: patient transferred back to the facility where he came from via ambulance with all of his belongings.
[2019-10-22 18:09] VITALS: BP 128/72
--- NOTE | 2019-10-22 18:11 | NUR ---
ER DISCHARGE NOTE: Patient is cleared to be discharged per ERMD DR ALONZO/DR GARCIA, pt is aox3 , on room air, with stable vital signs. pt was given dc and prescription instructions, pt was able to verbalize understanding, pt id band and iv site removed without complications. patient transferred by ambulance, pt took all belongings.
== END 2019-10-22 18:09 | disposition home or self-care (01) ==
LOC: EDBD 09:59 → EMR 12:01
DX: E11.65 Type 2 diabetes mellitus with hyperglycemia (principal); Z87.820 Personal history of traumatic brain injury; G40.909 Epilepsy, unspecified, not intractable, without status epilepticus; S92.415A Nondisplaced fracture of proximal phalanx of left great toe, initial encounter for closed fracture
CPT/HCPCS: 36415; 71045; 73630; 80053; 80307; 81003; 82550; 82962; 83880; 84484; 85025; 85610; 85730; 93005; 96360; G0480; J1815; J7030; Z7502; 99284